=== PATIENT | male | born 1985 | race Caucasian/White ===

== ENCOUNTER 2022-03-03 10:25 | Emergency (ER) | payer OTHER, SELFPAY ==
[2022-03-03] VITALS (7 sets, daily range): BP systolic 135–154; BP diastolic 81–102; PULSE 79–100; RESP 18; TEMP 36.4–37.2; O2SAT 96–99; BMI 39.0
--- NOTE | ~2022-03-03 | XR_ITS ---
EXAMINATION: XR HAND, LEFT CLINICAL INFORMATION: The first and second finger discoloration and pain. COMPARISON: November 29, 2007 TECHNIQUE: PA, lateral, and oblique views of the left hand. FINDINGS: There is no evidence of acute fracture or dislocation of the left hand. Left hand joint spaces are maintained. There is some soft tissue swelling seen about the proximal second phalanx and distal first phalanx. No radiopaque foreign bodies identified. No gas within the soft tissues is seen. XR/XR hand LT 2V IMPRESSION: No significant abnormality of the left hand identified.
--- NOTE | 2022-03-03 12:10 | ED_ITS ---
HPI - General Adult General Chief complaint: General Medical <PATEL Slaughter - Last Filed: 03/03/22 12:16> Stated complaint: WEAKNESS <PATEL Slaughter - Last Filed: 03/03/22 12:16> Time Seen by Provider: 03/03/22 15:56 <PATEL Slaughter - Last Filed: 03/03/22 12:16> Source: patient <Vicente Landaverde MD - Last Filed: 03/03/22 16:07> Mode of arrival: ambulatory <Vicente Landaverde MD - Last Filed: 03/03/22 16:07> Limitations: no limitations <Vicente Landaverde MD - Last Filed: 03/03/22 16:07> History of Present Illness HPI narrative: patient felt weak this morning, he felt lightheaded and weak. He is concerned about his iron. [facility]. patient used to be an alcoholic. <Vicente Landaverde MD - Last Filed: 03/03/22 16:07> Onset (ago): month(s) <Vicente Landaverde MD - Last Filed: 03/03/22 16:07> Severity: mild <Vicente Landaverde MD - Last Filed: 03/03/22 16:07> Pain Consistency: now resolved <Vicente Landaverde MD - Last Filed: 03/03/22 16:07> Relieving factors: none <Vicente Landaverde MD - Last Filed: 03/03/22 16:07> Exacerbating factors: none <Vicente Landaverde MD - Last Filed: 03/03/22 16:07> Related Data Allergies/adverse reactions: Allergies Allergy/AdvReac Type Severity Reaction Status Date / Time No Known Allergies Allergy Mild N/A Unverified 12/22/19 17:26 <PATEL Slaughter - Last Filed: 03/03/22 12:16> Review of Systems Review of Systems: Yes all other systems are reviewed and are negative <Vicente Landaverde MD - Last Filed: 03/03/22 16:07> PMFSH Social History Social History: Social History Advance Directives: No Advance Directives Information Provided: Yes <PATEL Slaughter - Last Filed: 03/03/22 12:16> Physical Exam ED Vital Signs: Vital Signs - 24 hr 03/03/22 12:10 Temperature 97.6 F Pulse Rate 87 Respiratory Rate 18 Blood Pressure 154/81 H Pulse Oximetry 97 Oxygen Delivery Method Room Air BMI result Body Mass Index 39.0 <PATEL Slaughter - Last Filed: 03/03/22 12:16> Vital Signs - 24 hr 03/03/22 12:10 Temperature 97.6 F Pulse Rate 87 Respiratory Rate 18 Blood Pressure 154/81 H Pulse Oximetry 97 Oxygen Delivery Method Room Air BMI result Body Mass Index 39.0 <Vicente Landaverde MD - Last Filed: 03/03/22 16:07> Const General: healthy appearing <Vicente Landaverde MD - Last Filed: 03/03/22 16:07> Nutritional Appearance: average body habitus <Vicetne Landaverde MD - Last Filed: 03/03/22 16:07> Orientation/consciousness: oriented to person and patient oriented x3 <Vicente Landaverde MD - Last Filed: 03/03/22 16:07> Limitations: no limitations <Vicente Landaverde MD - Last Filed: 03/03/22 16:07> HENMT Head: Yes normal to inspection <Vicente Landaverde MD - Last Filed: 03/03/22 16:07> Ears: external ears normal <Vicente Landaverde MD - Last Filed: 03/03/22 16:07> General nose exam: Normal external nose present <Vicente Landaverde MD - Last Filed: 03/03/22 16:07> Mouth: Normal oral and palatal mucosa present and oropharynx normal <Vicente Landaverde MD - Last Filed: 03/03/22 16:07> Throat: Yes posterior oropharynx normal <Vicente Landaverde MD - Last Filed: 03/03/22 16:07> Eyes General: appearance normal, both eyes and all related structures <Vicente Landaverde MD - Last Filed: 03/03/22 16:07> Neck Neck: Yes normal visual inspection <Vicente Landaverde MD - Last Filed: 03/03/22 16:07> Chest Chest palpation & inspection: normal inspection of the chest <Vicente Landaverde MD - Last Filed: 03/03/22 16:07> Resp Auscultation: clear to auscultation bilaterally <Vicente Landaverde MD - Last Filed: 03/03/22 16:07> Cardio Jugular venous distension: no JVD <Vicente Landaverde MD - Last Filed: 03/03/22 16:07> Rate: regular rate <Vicente Landaverde MD - Last Filed: 03/03/22 16:07> Rhythm: regular rhythm <Vicente Landaverde MD - Last Filed: 03/03/22 16:07> Heart sounds: S1 normal heart sound present and S2 normal heart sound present <Vicente Landaverde MD - Last Filed: 03/03/22 16:07> GI Inspection: Yes normal to inspection <Vicente Landaverde MD - Last Filed: 03/03/22 16:07> Palpation (GI): Soft to palpation, nontender and No hepatosplenomegaly present <Vicente Landaverde MD - Last Filed: 03/03/22 16:07> Auscultation: normal bowel sounds <Vicente Landaverde MD - Last Filed: 03/03/22 16:07> General: Yes no CVA tenderness <Vicente Landaverde MD - Last Filed: 03/03/22 16:07> Back/Spine/Pelvis Back: no CVA tenderness <Vicente Landaverde MD - Last Filed: 03/03/22 16:07> Skin General skin exam: no rashes or lesions noted <Vicente Landaverde MD - Last Filed: 03/03/22 16:07> Neuro General: oriented to person and patient oriented x3 <Vicente Landaverde MD - Last Filed: 03/03/22 16:07> Cranial nerves: Yes CN's II-XII intact bilaterally <Vicente Landaverde MD - Last Filed: 03/03/22 16:07> Motor exam (neuro): 5/5 motor strength present throughout <Vicente Landaverde MD - Last Filed: 03/03/22 16:07> Extrem General: Yes normal to inspection <Vicente Landaverde MD - Last Filed: 03/03/22 16:07> Psych Appearance: grossly normal <Vicente Landaverde MD - Last Filed: 03/03/22 16:07> Course Course Course Narrative: 36 yo with history of anemia, anxiety, former ETOH use who presents to the ER for evaluation of generalized weakness and dizziness that worsened today while he was out shopping. [place] like he was going to pass out. Also reports intermittent left sided chest pains, chills and not feeling well. Appetite has been poor due to anxiety. Getting worked up at the [facility] for similar complaints that have been ongoing. Will get EKG, labs for further workup. COVID and Flu ordered as well. <PATEL Slaughter - Last Filed: 03/03/22 12:16> Reevaluation(s) Reevaluation #1: labs including his LFT's are normal, Normal ekg his is suffering from stress and anxiety. will dc home <Vicente Landaverde MD - Last Filed: 03/03/22 16:07> Time: 16:06 <Vicente Landaverde MD - Last Filed: 03/03/22 16:07> Medical Decision Making Lab Data Result diagrams: : 03/03/22 12:36 03/03/22 12:36 <PATEL Slaughter - Last Filed: 03/03/22 12:16> Labs: Lab Results 03/03/22 03/03/22 03/03/22 Range/Units 12:36 12:36 12:36 WBC 8.2 (4.8-10.8) X10*3/uL RBC 5.45 (4.60-5.80) X10*6/uL Hgb 10.6 L (14.0-18.0) g/dl Hct 36.9 L (42.0-52.0) % MCV 67.7 L (80.0-98.0) fL MCH 19.4 L (27.0-33.0) pg MCHC 28.7 L (31.0-36.0) g/dl RDW 19.8 H (11.0-16.0) % Plt Count 462 H (160-400) X10*3/uL MPV 9.2 L (9.4-12.4) fL Immature Gran % (Auto) 0.5 H (0.0-0.4) % Neut % (Auto) 71.0 (45-73) % Lymph % (Auto) 20.5 (20-40) % [place] % (Auto) 7.1 (2-11) % Eos % (Auto) 0.5 (0-4) % Baso % (Auto) 0.4 (0-2) % Lymph # (Auto) 1.7 (1.2-4.9) X10*3/uL [place] # (Auto) 0.6 (0.1-1.2) X10*3/uL Eos # (Auto) 0.0 (0.0-0.4) X10*3/uL Baso # (Auto) 0.0 (0.0-0.2) X10*3/uL Abs Immat Gran (auto) 0.04 H (0.00-0.03) X10*3/uL Absolute Neuts (auto) 5.8 (2.0-8.3) x10*3/uL Absolute Nucleated RBC 0.000 (0.0-0.012) X10*3/uL Nucleated RBC % (auto) 0.0 (0.0-0.2) /100WBC Sodium 139 (135-145) mmol/L Potassium 4.1 (3.3-5.1) mmol/L Chloride 104 (96-108) mmol/L Carbon Dioxide 23 (22-29) mmol/L Anion Gap 16 (12-20) BUN 7 L (9-16) mg/dL Creatinine 1.19 (0.5-1.4) mg/dL Estim Creat Clear Calc 118.7 Estimated GFR > 60 Random Glucose 101 (60-115) mg/dL Calcium 10.1 (8.4-10.2) mg/dL Magnesium 2.3 (1.6-2.6) mg/dL Total Bilirubin 0.8 (0.0-1.0) mg/dL Direct Bilirubin 0.4 (0.0-0.5) mg/dL AST 22 (5-37) U/L ALT 29 (0-40) U/L Alkaline Phosphatase 59 (39-117) U/L Total Protein 7.2 (6.5-8.0) g/dL Albumin 4.8 (3.5-5.0) g/dL COVID-19 (TEREZA) (Negative) COVID-19 Clin Com Influenza Type A (TATIANA) Negative (Negative) Influenza Type B (TATIANA) Negative (Negative) Influenza A & B Note See Note 03/03/22 Range/Units 12:36 WBC (4.8-10.8) X10*3/uL RBC (4.60-5.80) X10*6/uL Hgb (14.0-18.0) g/dl Hct (42.0-52.0) % MCV (80.0-98.0) fL MCH (27.0-33.0) pg MCHC (31.0-36.0) g/dl RDW (11.0-16.0) % Plt Count (160-400) X10*3/uL MPV (9.4-12.4) fL Immature Gran % (Auto) (0.0-0.4) % Neut % (Auto) (45-73) % Lymph % (Auto) (20-40) % [place] % (Auto) (2-11) % Eos % (Auto) (0-4) % Baso % (Auto) (0-2) % Lymph # (Auto) (1.2-4.9) X10*3/uL [place] # (Auto) (0.1-1.2) X10*3/uL Eos # (Auto) (0.0-0.4) X10*3/uL Baso # (Auto) (0.0-0.2) X10*3/uL Abs Immat Gran (auto) (0.00-0.03) X10*3/uL Absolute Neuts (auto) (2.0-8.3) x10*3/uL Absolute Nucleated RBC (0.0-0.012) X10*3/uL Nucleated RBC % (auto) (0.0-0.2) /100WBC Sodium (135-145) mmol/L Potassium (3.3-5.1) mmol/L Chloride (96-108) mmol/L Carbon Dioxide (22-29) mmol/L Anion Gap (12-20) BUN (9-16) mg/dL Creatinine (0.5-1.4) mg/dL Estim Creat Clear Calc Estimated GFR Random Glucose (60-115) mg/dL Calcium (8.4-10.2) mg/dL Magnesium (1.6-2.6) mg/dL Total Bilirubin (0.0-1.0) mg/dL Direct Bilirubin (0.0-0.5) mg/dL AST (5-37) U/L ALT (0-40) U/L Alkaline Phosphatase (39-117) U/L Total Protein (6.5-8.0) g/dL Albumin (3.5-5.0) g/dL COVID-19 (TEREZA) Negative (Negative) COVID-19 Clin Com See Note Influenza Type A (TATIANA) (Negative) Influenza Type B (TATIANA) (Negative) Influenza A & B Note <PATEL Slaughter - Last Filed: 03/03/22 12:16> Lab Results 03/03/22 03/03/22 03/03/22 Range/Units 12:36 12:36 12:36 WBC 8.2 (4.8-10.8) X10*3/uL RBC 5.45 (4.60-5.80) X10*6/uL Hgb 10.6 L (14.0-18.0) g/dl Hct 36.9 L (42.0-52.0) % MCV 67.7 L (80.0-98.0) fL MCH 19.4 L (27.0-33.0) pg MCHC 28.7 L (31.0-36.0) g/dl RDW 19.8 H (11.0-16.0) % Plt Count 462 H (160-400) X10*3/uL MPV 9.2 L (9.4-12.4) fL Immature Gran % (Auto) 0.5 H (0.0-0.4) % Neut % (Auto) 71.0 (45-73) % Lymph % (Auto) 20.5 (20-40) % [place] % (Auto) 7.1 (2-11) % Eos % (Auto) 0.5 (0-4) % Baso % (Auto) 0.4 (0-2) % Lymph # (Auto) 1.7 (1.2-4.9) X10*3/uL [place] # (Auto) 0.6 (0.1-1.2) X10*3/uL Eos # (Auto) 0.0 (0.0-0.4) X10*3/uL Baso # (Auto) 0.0 (0.0-0.2) X10*3/uL Abs Immat Gran (auto) 0.04 H (0.00-0.03) X10*3/uL Absolute Neuts (auto) 5.8 (2.0-8.3) x10*3/uL Absolute Nucleated RBC 0.000 (0.0-0.012) X10*3/uL Nucleated RBC % (auto) 0.0 (0.0-0.2) /100WBC Sodium 139 (135-145) mmol/L Potassium 4.1 (3.3-5.1) mmol/L Chloride 104 (96-108) mmol/L Carbon Dioxide 23 (22-29) mmol/L Anion Gap 16 (12-20) BUN 7 L (9-16) mg/dL Creatinine 1.19 (0.5-1.4) mg/dL Estim Creat Clear Calc 118.7 Estimated GFR > 60 Random Glucose 101 (60-115) mg/dL Calcium 10.1 (8.4-10.2) mg/dL Magnesium 2.3 (1.6-2.6) mg/dL Total Bilirubin 0.8 (0.0-1.0) mg/dL Direct Bilirubin 0.4 (0.0-0.5) mg/dL AST 22 (5-37) U/L ALT 29 (0-40) U/L Alkaline Phosphatase 59 (39-117) U/L Total Protein 7.2 (6.5-8.0) g/dL Albumin 4.8 (3.5-5.0) g/dL COVID-19 (TEREZA) (Negative) COVID-19 Clin Com Influenza Type A (TATIANA) Negative (Negative) Influenza Type B (TATIANA) Negative (Negative) Influenza A & B Note See Note 03/03/22 Range/Units 12:36 WBC (4.8-10.8) X10*3/uL RBC (4.60-5.80) X10*6/uL Hgb (14.0-18.0) g/dl Hct (42.0-52.0) % MCV (80.0-98.0) fL MCH (27.0-33.0) pg MCHC (31.0-36.0) g/dl RDW (11.0-16.0) % Plt Count (160-400) X10*3/uL MPV (9.4-12.4) fL Immature Gran % (Auto) (0.0-0.4) % Neut % (Auto) (45-73) % Lymph % (Auto) (20-40) % [place] % (Auto) (2-11) % Eos % (Auto) (0-4) % Baso % (Auto) (0-2) % Lymph # (Auto) (1.2-4.9) X10*3/uL [place] # (Auto) (0.1-1.2) X10*3/uL Eos # (Auto) (0.0-0.4) X10*3/uL Baso # (Auto) (0.0-0.2) X10*3/uL Abs Immat Gran (auto) (0.00-0.03) X10*3/uL Absolute Neuts (auto) (2.0-8.3) x10*3/uL Absolute Nucleated RBC (0.0-0.012) X10*3/uL Nucleated RBC % (auto) (0.0-0.2) /100WBC Sodium (135-145) mmol/L Potassium (3.3-5.1) mmol/L Chloride (96-108) mmol/L Carbon Dioxide (22-29) mmol/L Anion Gap (12-20) BUN (9-16) mg/dL Creatinine (0.5-1.4) mg/dL Estim Creat Clear Calc Estimated GFR Random Glucose (60-115) mg/dL Calcium (8.4-10.2) mg/dL Magnesium (1.6-2.6) mg/dL Total Bilirubin (0.0-1.0) mg/dL Direct Bilirubin (0.0-0.5) mg/dL AST (5-37) U/L ALT (0-40) U/L Alkaline Phosphatase (39-117) U/L Total Protein (6.5-8.0) g/dL Albumin (3.5-5.0) g/dL COVID-19 (TEREZA) Negative (Negative) COVID-19 Clin Com See Note Influenza Type A (TATIANA) (Negative) Influenza Type B (TATIANA) (Negative) Influenza A & B Note <Vicente Landaverde MD - Last Filed: 03/03/22 16:07> ECG Data Attestation: I personally reviewed and interpreted this ECG as follows: <Vicente Landaverde MD - Last Filed: 03/03/22 16:07> Interpretation: sinus 80, no st or twave changes <Vicente Landaverde MD - Last Filed: 03/03/22 16:07> Discharge Plan Discharge Clinical Impression: Lightheadedness, Anxiety <PATEL Slaughter - Last Filed: 03/03/22 12:16> Patient Disposition: Home, Self-Care <PATEL Slaughter - Last Filed: 03/03/22 12:16> Instructions: Anxiety (ED) <PATEL Slaughter - Last Filed: 03/03/22 12:16> Referrals: Luis Maxwell PA [Primary Care Provider] - 5 days <PATEL Slaughter - Last Filed: 03/03/22 12:16>
--- NOTE | 2022-03-03 12:11 | ECG_ITS ---
Test Reason : weakness Blood Pressure : / mmHG Vent. Rate : 078 BPM Atrial Rate : 078 BPM P-R Int : 138 ms QRS Dur : 088 ms QT Int : 368 ms P-R-T Axes : 021 023 018 degrees QTc Int : 419 ms Normal sinus rhythm Possible Early repolarization Normal ECG When compared with ECG of 26-DEC-2009 11:54, T wave amplitude has decreased in Inferior leads Referred By: Lynette Cesar Electronically Signed By:SHAUN ARELLANO MD
[2022-03-03 12:41] LABS: MANUAL DIFF FLAG NO
[2022-03-03 12:44] LABS: Basophils Percent Auto 0.4 % (0-2); Eosinophils Percent Auto 0.5 % (0-4); Hematocrit 36.9 % (42.0-52.0); Hemoglobin 10.6 g/dl (14.0-18.0); Imm Gran Abs Auto 0.04 X10*3/uL (0.00-0.03); Imm Gran Pct Auto 0.5 % (0.0-0.4); Lymphocytes Absolute Auto 1.7 X10*3/uL (1.2-4.9); Lymphocytes Percent Auto 20.5 % (20-40); Mean Corpuscular HGB Conc 28.7 g/dl (31.0-36.0); Mean Corpuscular Hemoglobin 19.4 pg (27.0-33.0); Mean Corpuscular Volume 67.7 fL (80.0-98.0); Mean Platelet Volume 9.2 fL (9.4-12.4); Monocytes Absolute Auto 0.6 X10*3/uL (0.1-1.2); Monocytes Percent Auto 7.1 % (2-11); Neutrophils Absolute Auto 5.8 x10*3/uL (2.0-8.3); Platelet Count 462 X10*3/uL (160-400); Red Blood Count 5.45 X10*6/uL (4.60-5.80); Red Cell Distribution Width 19.8 % (11.0-16.0); White Blood Count 8.2 X10*3/uL (4.8-10.8)
[2022-03-03 12:56] LABS: COVID-19 Test Negative (Negative); IDNOW Serial# BCCEAD1C
[2022-03-03 12:57] LABS: IDNOW Serial# 9DB6401D; Influenza A Negative (Negative); Influenza B2 Negative (Negative)
[2022-03-03 12:58] LABS: Alanine Aminotransferase 29 U/L (0-40); Albumin Level 4.8 g/dL (3.5-5.0); Alkaline Phosphatase 59 U/L (39-117); Anion Gap 16 (12-20); Aspartate Amino Transferase 22 U/L (5-37); Bilirubin Direct 0.4 mg/dL (0.0-0.5); Bilirubin Total 0.8 mg/dL (0.0-1.0); Blood Urea Nitrogen 7 mg/dL (9-16); Calcium 10.1 mg/dL (8.4-10.2); Carbon Dioxide 23 mmol/L (22-29); Chloride 104 mmol/L (96-108); Creatinine Clr Calc Pharmacy 118.7; Estimated Glomerular Filt Rate > 60; Glucose Random 101 mg/dL (60-115); Magnesium 2.3 mg/dL (1.6-2.6); Potassium 4.1 mmol/L (3.3-5.1); Sodium 139 mmol/L (135-145); Total Protein 7.2 g/dL (6.5-8.0)
[2022-03-03 21:47] LABS: Hematocrit 35.3 % (42.0-52.0); Hemoglobin 10.4 g/dl (14.0-18.0)
[2022-03-03] MEDS: Omeprazole 40 MG CAPSULE.DR PO (21:53)
[2022-03-04] VITALS (9 sets, daily range): BP systolic 126–150; BP diastolic 88–109; PULSE 80–97; RESP 14–20; TEMP 36.4–37.2; O2SAT 96–100
--- NOTE | 2022-03-04 03:35 | PC.NURSE ---
this rn discussed with dr vines if a med rec should be placed for patient. MD recommends waiting until after crisis evaluation has been completed.
--- NOTE | 2022-03-04 04:33 | PC.NURSE ---
this rn spoke with pt pt requesting ice water at this time. pt also states he uses cpap at home. pt states he did not realize it was the middle of the night. this rn reassured pt respiratory therapy would be contacted to set up cpap.
--- NOTE | 2022-03-04 04:35 | PC.NURSE ---
this rn contacted respiratory regarding set up of cpap. cpap order placed by RN. RT states, will bring cpap for set up
--- NOTE | 2022-03-04 05:06 | PC.NURSE ---
cpap in place at this time
--- NOTE | 2022-03-04 05:17 | PC.NURSE ---
pt awake upon rn entry to room. cpap in place. pt requested additional water for bedside. as needed. this rn provided water to pt as requested
--- NOTE | 2022-03-04 06:15 | PC.NURSE ---
pt states he has been having a tingling sensation in l pointer finger everytime BP is checked on that side. 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
--- NOTE | 2022-03-04 09:13 | PC.NURSE ---
Pt reports generalized weakness since yesterday, near syncope. Continues to feel weak. Also reports left hand pain, discoloration to index and thumb warm with good radial pulse. Kayla aware. Pt reports increasing anxiety, no triggering events relayed to this RN. Denies SI/HI
--- NOTE | 2022-03-04 11:54 | PHA.MEDREC ---
Pharmacy Consult ? Medication Reconciliation Pharmacy has completed the medication reconciliation. Spoke to patient and used rx bottle to create list. patient said dr increased diltiazem from 120 to 240 but hasnt started taking dose yet
--- NOTE | 2022-03-04 13:35 | PC.NURSE ---
CARE team at bedside
--- NOTE | 2022-03-04 14:13 | MHC.CARE ---
Pt is a medical admit who told the ED DrWinston that he was having anxiety and asked for the CARE Team to check in with him. Pt is assessed in his room in the ED.? Pt was dressed in hospital gown and is lying in his bed for this assessment. His father is present and clearly supportive of his son. Pt was alert and oriented x4, and engaged easily with the CARE Team.? Pt denies SI/HI, and demonstrated a broad range of affect.? His speech was clear and he maintained eye contact.? Pt is able to answer questions posed to him and to verbalize his feelings.? Pt states that he was feeling very anxious due to recent medical issues that brought him to the ED, as well as his family?s medical history.? Pt expressed his concern over his family?s medical history, specifically those family members who had cancer.? He feels that his PTSD from service was flaring up, or thought maybe it was due to a med change which happened recently.? Pt was a heavy drinker until 6 months ago, when he quit.? He has a psychiatrist, therapist and PCP through the [facility].? He begins seeing the therapist in two days. He has attended AA, uses mindfulness and reads his mindfulness books to maintain his sobriety.? 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 While pt did expressed some interest in utilizing a [employer] Tender, he stated he did not feel it was something that he would utilize at this time.? Pt was given the CARE Team?s phone number and was advised that should he have a change of mind he was welcome to call and CARE would assist him in the process. Pt appears to have community supports in place through the [facility] and he has a supportive father.? Pt?s anxiety appears to be related to his medical concerns and not knowing what the cause of his medical issue is.
[2022-03-04 14:44] LABS: Appearance Urine Clear; Color Urine Dark Yellow; Glucose Urine UA Negative (Negative); Leukocyte Esterase Urine Trace (Negative); Nitrite Urine Negative (Negative); Specific Gravity - Urine >= 1.030 (1.005-1.025); UMIC TRIGGER UACC YES; Urine Blood Negative (Negative); Urine Ketones 40 mg/dL (Negative); Urine Protein 30 (1+) mg/dL (Neg-Trace)
[2022-03-04 14:49] LABS: Bacteria Urine None Seen (None Seen); Hyaline Casts Urine 0-2 /LPF (0-2); RBC Urine 0-2 /HPF (0-2); WBC Urine 0-5 /HPF (0-5)
--- NOTE | 2022-03-04 17:23 | PC.NURSE ---
Attempted to reach CARE team regarding dispo/plan, no response at this time. Pt remains calm/cooperative. Med rec ordered placed
[2022-03-05] VITALS (12 sets, daily range): BP systolic 115–153; BP diastolic 78–111; PULSE 74–111; RESP 12–20; TEMP 36.8–37; O2SAT 95–98
[2022-03-05] MEDS: Acetaminophen 325 MG TABLET 650 MG PO (06:10)
[2022-03-05] MEDS: Omeprazole 40 MG CAPSULE.DR PO (06:11)
--- NOTE | 2022-03-05 06:14 | PC.NURSE ---
PT's V/s are stable pt meds were administered. Pt seems anxious.
[2022-03-05] MEDS: dilTIAZem HCL CD 120 MG CAP.ER.DEG PO (10:36)
[2022-03-05] MEDS: Cholecalciferol (Vitamin D3) 25 MCG TABLET 125 MCG PO (10:37)
[2022-03-05] MEDS: Ferrous Sulfate 324 MG TABLET.DR PO (10:37)
[2022-03-05] MEDS: Multivitamin TABLET 1 TAB PO (10:37)
[2022-03-05] MEDS: buPROPion HCl XL 150 MG TAB.ER.24H PO (10:37)
[2022-03-05] MEDS: Ibuprofen 400 MG TABLET PO (10:37)
[2022-03-05] MEDS: Thiamine HCL 100 MG TABLET PO (10:37)
[2022-03-05] MEDS: Folic Acid 1 MG TABLET PO (10:39)
[2022-03-05 10:57] LABS: Troponin-I High Sensitivity 4.1 ng/L (<3.5-35.0)
[2022-03-05] MEDS: 0.9 % Sodium Chloride 1,000 ML 999 ML IV (11:42)
== END 2022-03-05 14:15 | disposition home or self-care (01) ==
PROVIDERS: Internal Medicine; Physician Assistant; Emergency Provider Emergency Medicine; PCP Physician Assistant
DX: R42 Dizziness and giddiness (principal); F41.9 Anxiety disorder, unspecified; Z20.822 Contact with and (suspected) exposure to COVID-19; I10 Essential (primary) hypertension; F12.90 Cannabis use, unspecified, uncomplicated; Z87.891 Personal history of nicotine dependence
CPT/HCPCS: 36415; 73120; 80048; 80076; 81001; 83735; 84484; 85014; 85018; 85025; 87502; 87635; 93005; 94660; 99285

== ENCOUNTER 2022-03-05 15:26 | Inpatient (IN) | payer OTHER, SELFPAY ==
[2022-03-05 15:46] VITALS: PULSE 89; RESP 16; TEMP 37.1; O2SAT 98; BMI 39.0
--- NOTE | 2022-03-05 17:03 | ED.PSYCH ---
HPI - Psych General Chief Complaint: Psychiatric Symptoms Stated Complaint: Crisis Time Seen by Provider: 03/05/22 16:16 Source: patient Mode of arrival: ambulatory Limitations: no limitations History of Present Illness HPI Narrative: 36-year-old male presents for crisis evaluation. That he states that he is paranoid, has significant anxiety, and feels that he will not be able function on own. He was discharged from this facility this morning. He stated that he could not articulate his feelings at the time of his discharge. MD complaint: anxiety and other (Paranoia) Onset (ago): week(s) Duration: constant History of same: Yes Relieving factors: none Associated psychiatric symptoms: racing thoughts and other (Paranoia) Associated symptoms: denies other symptoms If self harm: admits thoughts of self harm Related Data Home Medications Medication Instructions Recorded Confirmed bupropion HCl 150 mg 24 hr tablet, 150 mg PO QAM 03/04/22 03/04/22 extended release cholecalciferol (vitamin D3) 125 125 mcg PO DAILY 03/04/22 03/04/22 mcg (5,000 unit) tablet (Vitamin D3) diltiazem HCl 120 mg 120 mg PO DAILY 03/04/22 03/04/22 capsule,extended release 24 hr ferrous sulfate 325 mg (65 mg 325 mg PO DAILY 03/04/22 03/04/22 iron) tablet (iron) folic acid 1 mg tablet 1 mg PO DAILY 03/04/22 03/04/22 multivitamin 1 tab PO DAILY 03/04/22 03/04/22 omega 1-klc-wrt-fish oil 1,000 mg 1 cap PO DAILY 03/04/22 03/04/22 (120 mg-180 mg) capsule (Fish Oil) thiamine HCl (vitamin B1) 100 mg 100 mg PO DAILY 03/04/22 03/04/22 tablet Allergies Allergy/AdvReac Type Severity Reaction Status Date / Time No Known Allergies Allergy Mild N/A Unverified 12/22/19 17:26 Review of Systems Review of Systems: Constitutional: No Fever, No Chills ENT/Mouth: No Ear Pain, No Nasal Congestion, No sore throat Eyes: No Eye Pain, No Swelling, No Redness Cardiovascular: No Chest Pain, No SOB Respiratory: No Cough, No Sputum, No Dyspnea Gastrointestinal: No Nausea, No Vomiting, No Diarrhea, No Hematochezia, No Melena Genitourinary: No Dysuria, No Urinary Frequency, No Hematuria Musculoskeletal: No Myalgias Skin: No Skin Lesions, No rash Neuro: No Weakness, No Numbness, No Paresthesias, No Dizziness, No Headache Psych: positive Anxiety, positive Depression, positive SI Heme/Lymph: No Lymphadenopathy Endocrine: No Polyuria, No Polydipsia Yes all other systems are reviewed and are negative [facility] Past Medical History Attestation statement: The following information was validated with the patient. Source: old records reviewed Social History Social History Advance Directives: No Advance Directives Information Provided: No Physical Exam Vital Signs: Vital Signs: Last Vital Signs Temp 98.0 F 03/05/22 17:23 Pulse 72 03/05/22 17:23 Resp 16 03/05/22 17:23 BP 142/84 H 03/05/22 17:23 Pulse Ox 98 03/05/22 17:23 O2 Del Method 03/05/22 17:23 BMI result Body Mass Index 39.0 Appearance: Alert. Oriented X3. Moderate emotional distress. Eyes: Pupils equal, round and reactive to light. ENT: Pharynx normal. Neck: Normal inspection. Neck supple. CVS: Normal heart rate and rhythm. Pulses normal. Respiratory: No respiratory distress. Breath sounds normal. Abdomen: Soft and nontender. Skin: Skin warm and dry. Normal skin color. Normal skin turgor. Extremities: Gait well balanced well coordinated. Neuro: No motor deficit. No sensory deficit. Cranial nerves 2-12 intact. Course Course Course Narrative: 36-year-old male presents for psychiatric evaluation for paranoia and anxiety. Was discharged from this facility less than 5 hours ago. States that he is so paranoid and has so much anxiety that he does not feel that he would be successful in the community. Patient states that he is suicidal, but does not have a plan. Patient is alert oriented x4, answering questions politely and appropriately, speech appears pressured, making minimal eye contact. Patient offered medication for anxiety which he accepted, crisis consult pending. Labs were drawn less than 24 hours ago. 19:10 crisis consult complete. Plan of care is [place] leads bed search. Physician observation at this time. Medications Administered Discontinued Medications Generic Name Dose Route Start Last Admin Trade Name Freq PRN Reason Stop Dose Admin Lorazepam 1 mg 03/05/22 17:03 03/05/22 18:03 Lorazepam 1 Mg Tablet PO 03/05/22 17:04 1 mg ONCE ONE Administration MDM - Psych Differential Diagnosis Differential diagnosis: Likely acute psychosis, suicidal ideation, depression, acute anxiety and mood disorder Medical Records Attestation: I reviewed the patient's medical records. Discharge Plan Discharge Clinical Impression: Anxiety, Paranoia Patient Disposition: Still a Patient Instructions: Anxiety (ED), Psychotic Disorder (ED) Additional Instructions: Follow-up with outpatient psychiatry Thank you for choosing this emergency department for evaluation. Please follow-up with primary care physician as needed. Return to the emergency department for any new, concerning, or worsening symptoms. Prescriptions: No Action diltiazem HCl 120 mg Capsule,Extended Release 24hr 120 mg PO DAILY folic acid 1 mg Tablet 1 mg PO DAILY bupropion HCl 150 mg Tablet Extended Release 24 Hr 150 mg PO QAM omega 6-igq-ets-fish oil [Fish Oil] 1,000 mg (120 mg-180 mg) Capsule 1 cap PO DAILY cholecalciferol (vitamin D3) [Vitamin D3] 125 mcg (5,000 unit) Tablet 125 mcg PO DAILY multivitamin [Multivites] Tablet 1 tab PO DAILY thiamine HCl (vitamin B1) 100 mg Tablet 100 mg PO DAILY ferrous sulfate [iron] 325 mg (65 mg iron) Tablet 325 mg PO DAILY Interventions: [place]-Suicide Risk Severity Scale Last Done: 03/05/22 16:16
[2022-03-05 17:23] VITALS: BP 142/84; PULSE 72; RESP 16; TEMP 36.7; O2SAT 98
[2022-03-05] MEDS: LORazepam 1 MG TABLET PO (18:03)
--- NOTE | 2022-03-05 18:16 | PC.NURSE ---
smart sheet send over to [facility]
[2022-03-05 20:32] LABS: Influenza A PCR NEGATIVE (Negative); Influenza B PCR NEGATIVE (Negative); Resp Syncy Virus RNA Qual PCR NEGATIVE (Negative); SARS COV2 PCR INHOUSE NEGATIVE (Negative)
--- NOTE | 2022-03-05 21:19 | MHC.CARE ---
Pt was evaluated by the CARE Team. Pt is a [facility] IP bedsearch- Voluntary. T/w called the [facility] and they requested packet to be sent over.
[2022-03-06 00:52] VITALS: BP 148/78; PULSE 79; RESP 16; TEMP 36.7; O2SAT 98
[2022-03-06 02:50] LABS: Amphetamine Screen Urine Not Detected (Not Detect); Barbiturates, Urine Not Detected (Not Detect); Benzodiazepines Screen Urine Not Detected (Not Detect); Cannabinoid Screen Urine POSITIVE (Not Detect); Cocaine Screen Urine Not Detected (Not Detect); Fentanyl, urine Not Detected (Not Detect); Opiate Screen Urine Not Detected (Not Detect); Phencyclidine Screen Urine Not Detected (Not Detect)
--- NOTE | 2022-03-06 04:52 | PC.NURSE ---
Patient slept through the night, no distress observed/reported, behavior appropriate and non concerning at this time, no paranoia observed or exhibited, patient was assessed by care team disposition [facility], [facility] called and made us aware of their concern regarding patient GI bleed, provider made aware, guaiac test done/negative, CBC repeat order in the morning to check H&H, patient reported no tarry stool, patient described his stool brown, per provider's opinion, patient reporting dark stool could be related to the patient's paranoia, patient ambulates independently, expressing needs well, med rec completed/pending provider's approval, VSS, will continue to monitor.
[2022-03-06 05:43] LABS: MANUAL DIFF FLAG NO
[2022-03-06 05:44] LABS: Basophils Percent Auto 0.4 % (0-2); Eosinophils Absolute Auto 0.1 X10*3/uL (0.0-0.4); Eosinophils Percent Auto 1.3 % (0-4); Hematocrit 39.6 % (42.0-52.0); Hemoglobin 11.6 g/dl (14.0-18.0); Imm Gran Abs Auto 0.02 X10*3/uL (0.00-0.03); Imm Gran Pct Auto 0.3 % (0.0-0.4); Lymphocytes Absolute Auto 1.6 X10*3/uL (1.2-4.9); Lymphocytes Percent Auto 22.1 % (20-40); Mean Corpuscular HGB Conc 29.3 g/dl (31.0-36.0); Mean Corpuscular Hemoglobin 19.7 pg (27.0-33.0); Mean Corpuscular Volume 67.3 fL (80.0-98.0); Mean Platelet Volume 8.8 fL (9.4-12.4); Monocytes Absolute Auto 0.6 X10*3/uL (0.1-1.2); Monocytes Percent Auto 7.8 % (2-11); Neutrophils Percent Auto 68.1 % (45-73); Platelet Count 404 X10*3/uL (160-400); Red Blood Count 5.88 X10*6/uL (4.60-5.80); Red Cell Distribution Width 19.9 % (11.0-16.0); White Blood Count 7.4 X10*3/uL (4.8-10.8)
[2022-03-06 07:43] VITALS: RESP 18
--- NOTE | 2022-03-06 08:31 | MHC.CARE ---
CARE Team left message for [facility] and updated medical was faxed.
[2022-03-06] MEDS: Multivitamin TABLET 1 TAB PO (08:57)
[2022-03-06] MEDS: Ferrous Sulfate 324 MG TABLET.DR PO (08:57)
[2022-03-06] MEDS: Thiamine HCL 100 MG TABLET PO (08:57)
[2022-03-06] MEDS: dilTIAZem HCL CD 120 MG CAP.ER.DEG PO (08:57)
[2022-03-06] MEDS: Cholecalciferol (Vitamin D3) 25 MCG TABLET 125 MCG PO (08:57)
[2022-03-06] MEDS: buPROPion HCl XL 150 MG TAB.ER.24H PO (08:58)
[2022-03-06] MEDS: Folic Acid 1 MG TABLET PO (08:58)
[2022-03-06 10:31] VITALS: BP 143/92; PULSE 83; RESP 16; TEMP 36.7; O2SAT 98
--- NOTE | 2022-03-06 12:14 | MHC.CARE ---
Pt declined at [facility] due to medical
[2022-03-06 12:29] LABS: Alanine Aminotransferase 21 U/L (0-40); Albumin Level 4.6 g/dL (3.5-5.0); Alkaline Phosphatase 56 U/L (39-117); Anion Gap 12 (12-20); Aspartate Amino Transferase 16 U/L (5-37); Bilirubin Total 0.8 mg/dL (0.0-1.0); Blood Urea Nitrogen 7 mg/dL (9-16); Calcium 9.8 mg/dL (8.4-10.2); Carbon Dioxide 23 mmol/L (22-29); Chloride 106 mmol/L (96-108); Creatinine Clr Calc Pharmacy 133.3; Estimated Glomerular Filt Rate > 60; Ethanol < 10 mg/dL; Glucose Random 86 mg/dL (60-115); Potassium 3.9 mmol/L (3.3-5.1); Sodium 137 mmol/L (135-145); Total Protein 6.9 g/dL (6.5-8.0)
--- NOTE | 2022-03-06 13:24 | MHC.CARE ---
Pt declined at [facility] due to medical concerns
[2022-03-06] MEDS: LORazepam 1 MG TABLET 2 MG PO (14:28)
[2022-03-06 15:35] VITALS: BP 145/99; PULSE 113; RESP 18; TEMP 36.6; O2SAT 98
[2022-03-06 17:38] VITALS: BMI 36.8
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
[2022-03-06 20:15] VITALS: BP 129/86; PULSE 75; RESP 16; TEMP 36.3; O2SAT 99
[2022-03-06] MEDS: Acetaminophen 325 MG TABLET 650 MG PO (21:28)
[2022-03-06] MEDS: traZODone HCL 50 MG TABLET PO (23:43)
[2022-03-06] MEDS: hydrOXYzine HCL 25 MG TABLET PO (23:44)
[2022-03-07] MEDS: Acetaminophen 325 MG TABLET 650 MG PO (02:43)
[2022-03-07] MEDS: Ferrous Sulfate 324 MG TABLET.DR PO (08:46)
[2022-03-07] MEDS: Multivitamin TABLET 1 TAB PO (08:46)
[2022-03-07] MEDS: Folic Acid 1 MG TABLET PO (08:46)
[2022-03-07] MEDS: Cholecalciferol (Vitamin D3) 25 MCG TABLET 125 MCG PO (08:46)
[2022-03-07] MEDS: Thiamine HCL 100 MG TABLET PO (08:46)
[2022-03-07 08:49] VITALS: BP 168/98; PULSE 68; RESP 17; TEMP 36.6; O2SAT 98
[2022-03-07] MEDS: dilTIAZem HCL CD 240 MG CAP.ER.DEG PO (12:21)
--- NOTE | 2022-03-07 17:13 | P.PNPSI_ITS ---
Subjective Subjective Date of Service: 03/07/22 Reason For Visit: SI Subjective Notes: Alcocer Warning and Conditional Voluntary Interim History: I spoke with pt this evening. Says he attributes his paranoia and presentation in the ED to having a panic attack and also says he thinks wellbutrin has been making him paranoid. Says lately his PTSD and anxiety have been getting unbearable. He is worried about his health due to being diagnosed with low iron, has to have a GI workup. Pt is 6-7 months sober from alcohol. Discussed hx of participating in a co-occurring illness program at the [facility], however he relapsed after leaving the program, drank a handle a day. He was able to attain sobriety again and attributes this in part to medical cannabis, takes 1-2 edibles at night. Also says he uses music and his dog help. Currently he denies urges to use alchol. 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 Pt says he used to be on prazosin, it was very good for me, took 4mg AM and 8 mg HS. Says his anxiety is his number one frustration. Had past benefit on SSRIs, i.e. zoloft, but c/o sexual SEs, says it was a libido killer. Medication Compliance: Yes Side effects from medications: No Attending Groups: Yes Review of Systems Acute medical concerns: No Medical Review of Systems: unchanged Mental Status Exam Mental Status Exam Narrative: A&O. Overweight, long mackenzie. Good eye contact, attentive. No Tics or Tremors. No abnormal involuntary movements. Calm, cooperative, engaged. Non-pressured speech, spontaneous with regular rate and rhythm, normal volume and prosody. No prolonged speech latency or dysarthria. Mood is ?anxious,? affect is appropriate. Denies SI/SIB/HI upon inquiry. Denies A/VH or delusional thought content. Thoughts are coherent, organized. No known cognitive or memory impairment. Insight/ Judgment fair and adequate. Diagnostics Vital Signs (24Hr): Vital Signs - 24 hr 03/06/22 20:15 03/07/22 08:49 Temperature 97.4 F 97.8 F Pulse Rate 75 68 Respiratory Rate 16 17 Blood Pressure 129/86 168/98 H Pulse Oximetry 99 98 Oxygen Delivery Method Room Air Room Air BMI result Body Mass Index 36.8 Labs Results: 03/06/22 05:39 03/06/22 10:44 Labs: Laboratory Results - last 48 hr 03/05/22 03/06/22 03/06/22 19:43 02:30 05:39 WBC 7.4 RBC 5.88 H Hgb 11.6 L Hct 39.6 L MCV 67.3 L MCH 19.7 L MCHC 29.3 L RDW 19.9 H Plt Count 404 H MPV 8.8 L Immature Gran % (Auto) 0.3 Neut % (Auto) 68.1 Lymph % (Auto) 22.1 [place] % (Auto) 7.8 Eos % (Auto) 1.3 Baso % (Auto) 0.4 Lymph # (Auto) 1.6 [place] # (Auto) 0.6 Eos # (Auto) 0.1 Baso # (Auto) 0.0 Abs Immat Gran (auto) 0.02 Absolute Neuts (auto) 5.0 Absolute Nucleated RBC 0.000 Nucleated RBC % (auto) 0.0 Sodium Potassium Chloride Carbon Dioxide Anion Gap BUN Creatinine Estim Creat Clear Calc Estimated GFR Random Glucose Calcium Total Bilirubin AST ALT Alkaline Phosphatase Total Protein Albumin Urine Opiates Screen Not Detected Urine Fentanyl Screen Not Detected Ur Barbiturates Screen Not Detected Ur Phencyclidine Scrn Not Detected Ur Amphetamines Screen Not Detected U Benzodiazepines Scrn Not Detected Urine Cocaine Screen Not Detected U Marijuana (THC) Screen POSITIVE H Ethyl Alcohol Influenza Type A (PCR) NEGATIVE Influenza Type B (PCR) NEGATIVE RSV RNA Qual (PCR) NEGATIVE SARS-CoV-2 RNA (RT-PCR) NEGATIVE 03/06/22 10:44 WBC RBC Hgb Hct MCV MCH MCHC RDW Plt Count MPV Immature Gran % (Auto) Neut % (Auto) Lymph % (Auto) [place] % (Auto) Eos % (Auto) Baso % (Auto) Lymph # (Auto) [place] # (Auto) Eos # (Auto) Baso # (Auto) Abs Immat Gran (auto) Absolute Neuts (auto) Absolute Nucleated RBC Nucleated RBC % (auto) Sodium 137 Potassium 3.9 Chloride 106 Carbon Dioxide 23 Anion Gap 12 BUN 7 L Creatinine 1.06 Estim Creat Clear Calc 133.3 Estimated GFR > 60 Random Glucose 86 Calcium 9.8 Total Bilirubin 0.8 AST 16 ALT 21 Alkaline Phosphatase 56 Total Protein 6.9 Albumin 4.6 Urine Opiates Screen Urine Fentanyl Screen Ur Barbiturates Screen Ur Phencyclidine Scrn Ur Amphetamines Screen U Benzodiazepines Scrn Urine Cocaine Screen U Marijuana (THC) Screen Ethyl Alcohol < 10 Influenza Type A (PCR) Influenza Type B (PCR) RSV RNA Qual (PCR) SARS-CoV-2 RNA (RT-PCR) Medications Medications Current Medications Acetaminophen (Acetaminophen 325 Mg Tablet) 650 mg PO Q6H PRN PRN Reason: Headache/Pain Mild Scale (1-3) Last Admin: 03/07/22 02:43 Dose: 650 mg Al Hydroxide/Mg Hydroxide (Magnesium Hydrox/Alum Hydrox 30 Ml Oral.Susp) 30 ml PO Q6H PRN PRN Reason: Heartburn/Nausea Bupropion HCl (Bupropion Hcl Xl 150 Mg Tab.Er.24h) 150 mg PO DAILY [facility] Last Admin: 03/06/22 08:58 Dose: 150 mg Diltiazem HCl (Diltiazem Hcl Cd 240 Mg Cap.Er.Deg) 240 mg PO DAILY [facility]; Protocol Last Admin: 03/07/22 12:21 Dose: 240 mg Ferrous Sulfate (Ferrous Sulfate 324 Mg Tablet.Dr) 324 mg PO DAILY [facility] Last Admin: 03/07/22 08:46 Dose: 324 mg Folic Acid (Folic Acid 1 Mg Tablet) 1 mg PO DAILY [facility] Last Admin: 03/07/22 08:46 Dose: 1 mg Hydroxyzine HCl (Hydroxyzine Hcl 25 Mg Tablet) 25 mg PO Q6H PRN PRN Reason: Anxiety Last Admin: 03/06/22 23:44 Dose: 25 mg Magnesium Hydroxide (Milk Of Magnesia 30 Ml Oral.Susp) 30 ml PO DAILY PRN PRN Reason: Constipation Multivitamins/Vitamin C (Multivitamin Tablet) 1 tab PO DAILY [facility] Last Admin: 03/07/22 08:46 Dose: 1 tab Nicotine Polacrilex (Nicotine Polacrilex 2 Mg Gum) 4 mg BUCCAL Q2H PRN PRN Reason: Nicotine Cravings Thiamine HCl (Thiamine Hcl 100 Mg Tablet) 100 mg PO DAILY [facility] Last Admin: 03/07/22 08:46 Dose: 100 mg Trazodone HCl (Trazodone Hcl 50 Mg Tablet) 50 mg PO BEDTIME PRN PRN Reason: Insomnia Last Admin: 03/06/22 23:43 Dose: 50 mg Vitamin D (Cholecalciferol (Vitamin D3) 25 Mcg Tablet) 125 mcg PO DAILY [facility] Last Admin: 03/07/22 08:46 Dose: 125 mcg Allergies Allergies Allergy/AdvReac Type Severity Reaction Status Date / Time No Known Allergies Allergy Mild N/A Unverified 12/22/19 17:26 Assessment & Plan Assessment & Plan (1) Schizoaffective disorder, depressive type: Status: Acute Code(s): F25.1 - Schizoaffective disorder, depressive type Plan 36 y.o. male who carries a dx of schizoaffective disorder, PTSD, AUD (in remission). He presented to [facility] on 03/04/22 due to paranoid ideation, increased anxiety, he endorsed passive SI.?Pt believes people are after him, following him, and want to kill him; thinks they are outside the hospital waiting for him. Believes local crimes are connected to him. Pt?s mother says he has had worsening paranoia since leaving the , [facility] No current OP treatment. Plan: 03/06 D/C wellbutrin XL 150 mg as this may be exacerbating paranoia, psychosis 03/07 Start lexapro 10 mg daily for sx of PTSD, anxiety. re-start prazosin 4 mg HS for PTSD nightmares, hyperarousal Q15 min safety checks, CV Monitor response to medications. Monitor for safety in the milieu. Discharge on stabilization. Patient seen. Chart reviewed. Discussed with team. Obtain collateral contact info?as needed I spent minutes with the patient and/or on the patient floor today, greater than?50% of which was spent counseling/coordinating care. Patient educated on: diagnosis, medication risk/benefits and therapeutic strategies Reason for contiued inpatient stay Substantial Risk for: rapid decompensation and med/psych decompensation
[2022-03-07] MEDS: hydrOXYzine HCL 25 MG TABLET PO (18:20)
[2022-03-07 22:00] VITALS: BP 138/87; PULSE 96; RESP 16; TEMP 36.8; O2SAT 98
[2022-03-07] MEDS: Prazosin HCL 1 MG CAPSULE 4 MG PO (22:03)
[2022-03-07] MEDS: hydrOXYzine HCL 50 MG TABLET PO (22:03)
[2022-03-07] MEDS: traZODone HCL 50 MG TABLET PO (23:08)
--- NOTE | 2022-03-08 01:54 | HO.PSYCHPN ---
Subjective Subjective Date of Service: 03/08/22 Reason For Visit: SI Interim History: Spoke with pt and team. Pt has been c/o of what appears to be Raynaud's, has pain in fingers, addition of motrin prn helped. Says he woke up groggy, but that's baseline. feels anxious due to starting new medication but art group and watching soccer are helping. wants to do meditation group later. Feels safe. Continues to deny paranoia or delusional thought content. Mental Status Exam Mental Status Exam Narrative: A&O. Overweight, long mackenzie. Good eye contact, attentive. No Tics or Tremors. No abnormal involuntary movements. Calm, cooperative, engaged. Non-pressured speech, spontaneous with regular rate and rhythm, normal volume and prosody. No prolonged speech latency or dysarthria. Mood is ?anxious,? affect is appropriate. Denies SI/SIB/HI upon inquiry. Denies A/VH or delusional thought content. Thoughts are coherent, organized. No known cognitive or memory impairment. Insight/ Judgment fair and adequate. Diagnostics Vital Signs (24Hr): Vital Signs - 24 hr 03/07/22 08:49 03/07/22 22:00 Temperature 97.8 F 98.3 F Pulse Rate 68 96 Respiratory Rate 17 16 Blood Pressure 168/98 H 138/87 Pulse Oximetry 98 98 Oxygen Delivery Method Room Air Room Air BMI result Body Mass Index 36.8 Labs Results: 03/06/22 05:39 03/06/22 10:44 Labs: Laboratory Results - last 48 hr 03/06/22 03/06/22 03/06/22 02:30 05:39 10:44 WBC 7.4 RBC 5.88 H Hgb 11.6 L Hct 39.6 L MCV 67.3 L MCH 19.7 L MCHC 29.3 L RDW 19.9 H Plt Count 404 H MPV 8.8 L Immature Gran % (Auto) 0.3 Neut % (Auto) 68.1 Lymph % (Auto) 22.1 [place] % (Auto) 7.8 Eos % (Auto) 1.3 Baso % (Auto) 0.4 Lymph # (Auto) 1.6 [place] # (Auto) 0.6 Eos # (Auto) 0.1 Baso # (Auto) 0.0 Abs Immat Gran (auto) 0.02 Absolute Neuts (auto) 5.0 Absolute Nucleated RBC 0.000 Nucleated RBC % (auto) 0.0 Sodium 137 Potassium 3.9 Chloride 106 Carbon Dioxide 23 Anion Gap 12 BUN 7 L Creatinine 1.06 Estim Creat Clear Calc 133.3 Estimated GFR > 60 Random Glucose 86 Calcium 9.8 Total Bilirubin 0.8 AST 16 ALT 21 Alkaline Phosphatase 56 Total Protein 6.9 Albumin 4.6 Urine Opiates Screen Not Detected Urine Fentanyl Screen Not Detected Ur Barbiturates Screen Not Detected Ur Phencyclidine Scrn Not Detected Ur Amphetamines Screen Not Detected U Benzodiazepines Scrn Not Detected Urine Cocaine Screen Not Detected U Marijuana (THC) Screen POSITIVE H Ethyl Alcohol < 10 Medications Medications Current Medications Acetaminophen (Acetaminophen 325 Mg Tablet) 650 mg PO Q6H PRN PRN Reason: Headache/Pain Mild Scale (1-3) Last Admin: 03/07/22 02:43 Dose: 650 mg Al Hydroxide/Mg Hydroxide (Magnesium Hydrox/Alum Hydrox 30 Ml Oral.Susp) 30 ml PO Q6H PRN PRN Reason: Heartburn/Nausea Bupropion HCl (Bupropion Hcl Xl 150 Mg Tab.Er.24h) 150 mg PO DAILY [facility] Last Admin: 03/06/22 08:58 Dose: 150 mg Diltiazem HCl (Diltiazem Hcl Cd 240 Mg Cap.Er.Deg) 240 mg PO DAILY [facility]; Protocol Last Admin: 03/07/22 12:21 Dose: 240 mg Escitalopram Oxalate (Escitalopram Oxalate 10 Mg Tablet) 10 mg PO DAILY [facility] Ferrous Sulfate (Ferrous Sulfate 324 Mg Tablet.Dr) 324 mg PO DAILY [facility] Last Admin: 03/07/22 08:46 Dose: 324 mg Folic Acid (Folic Acid 1 Mg Tablet) 1 mg PO DAILY [facility] Last Admin: 03/07/22 08:46 Dose: 1 mg Hydroxyzine HCl (Hydroxyzine Hcl 50 Mg Tablet) 50 mg PO Q4H PRN PRN Reason: Anxiety Last Admin: 03/07/22 22:03 Dose: 50 mg Magnesium Hydroxide (Milk Of Magnesia 30 Ml Oral.Susp) 30 ml PO DAILY PRN PRN Reason: Constipation Multivitamins/Vitamin C (Multivitamin Tablet) 1 tab PO DAILY [facility] Last Admin: 03/07/22 08:46 Dose: 1 tab Nicotine Polacrilex (Nicotine Polacrilex 2 Mg Gum) 4 mg BUCCAL Q2H PRN PRN Reason: Nicotine Cravings Prazosin HCl (Prazosin Hcl 1 Mg Capsule) 4 mg PO BEDTIME [facility]; Protocol Last Admin: 03/07/22 22:03 Dose: 4 mg Thiamine HCl (Thiamine Hcl 100 Mg Tablet) 100 mg PO DAILY [facility] Last Admin: 03/07/22 08:46 Dose: 100 mg Trazodone HCl (Trazodone Hcl 50 Mg Tablet) 50 mg PO BEDTIME PRN PRN Reason: Insomnia Last Admin: 03/07/22 23:08 Dose: 50 mg Vitamin D (Cholecalciferol (Vitamin D3) 25 Mcg Tablet) 125 mcg PO DAILY [facility] Last Admin: 03/07/22 08:46 Dose: 125 mcg Allergies Allergies Allergy/AdvReac Type Severity Reaction Status Date / Time No Known Allergies Allergy Mild N/A Unverified 12/22/19 17:26 Assessment & Plan Assessment & Plan (1) Schizoaffective disorder, depressive type: Status: Acute Code(s): F25.1 - Schizoaffective disorder, depressive type Plan 36 y.o. male who carries a dx of schizoaffective disorder, PTSD, AUD (in remission). He presented to [facility] on 03/04/22 due to paranoid ideation, increased anxiety, he endorsed passive SI.?Pt believes people are after him, following him, and want to kill him; thinks they are outside the hospital waiting for him. Believes local crimes are connected to him. Pt?s mother says he has had worsening paranoia since leaving the , [facility]. No current OP treatment. Plan: 03/06 D/C wellbutrin XL 150 mg as this may be exacerbating paranoia, psychosis 03/07 Start lexapro 10 mg daily for sx of PTSD, anxiety. re-start prazosin 4 mg HS for PTSD nightmares, hyperarousal 03/08 continue med trial, no changes Q15 min safety checks, CV Monitor response to medications. Monitor for safety in the milieu. Discharge on stabilization. Patient seen. Chart reviewed. Discussed with team. Obtain collateral contact info?as needed I spent minutes with the patient and/or on the patient floor today, greater than?50% of which was spent counseling/coordinating care. Patient educated on: medication risk/benefits and therapeutic strategies Reason for contiued inpatient stay Substantial Risk for: med/psych decompensation
[2022-03-08] MEDS: Acetaminophen 325 MG TABLET 650 MG PO ×2 (02:05→21:07)
[2022-03-08] MEDS: Ibuprofen 600 MG TABLET PO ×2 (02:14→22:55)
[2022-03-08 04:28] VITALS: RESP 16
[2022-03-08 06:00] VITALS: BP 139/90; PULSE 92; RESP 16; TEMP 36.6; O2SAT 98
[2022-03-08] MEDS: dilTIAZem HCL CD 240 MG CAP.ER.DEG PO (09:18)
[2022-03-08] MEDS: Thiamine HCL 100 MG TABLET PO (09:18)
[2022-03-08] MEDS: Cholecalciferol (Vitamin D3) 25 MCG TABLET 125 MCG PO (09:18)
[2022-03-08] MEDS: Ferrous Sulfate 324 MG TABLET.DR PO (09:19)
[2022-03-08] MEDS: Folic Acid 1 MG TABLET PO (09:19)
[2022-03-08] MEDS: Multivitamin TABLET 1 TAB PO (09:19)
[2022-03-08] MEDS: Escitalopram Oxalate 10 MG TABLET PO (09:19)
[2022-03-08 18:46] VITALS: BP 158/97; PULSE 100; RESP 16; TEMP 36.8; O2SAT 97
--- NOTE | 2022-03-08 19:12 | PC.NURSE ---
touched base with providers in regard to the patients thumb and pointer finger on his left hand. Patient has documented discoloration and pain in the area. Due to skin color looking bruised, and patient stated that he has some pain in the area, picture was sent to provider through [employer]. It was indicated that problem will be treated outpatient.
[2022-03-08] MEDS: hydrOXYzine HCL 50 MG TABLET PO (19:54)
[2022-03-08] MEDS: Prazosin HCL 1 MG CAPSULE 4 MG PO (21:07)
[2022-03-08] MEDS: traZODone HCL 50 MG TABLET PO (22:56)
[2022-03-09 06:00] VITALS: BP 146/94; PULSE 97; RESP 18; TEMP 36.7; O2SAT 96
[2022-03-09] MEDS: dilTIAZem HCL CD 240 MG CAP.ER.DEG PO (08:19)
[2022-03-09] MEDS: Cholecalciferol (Vitamin D3) 25 MCG TABLET 125 MCG PO (08:19)
[2022-03-09] MEDS: Multivitamin TABLET 1 TAB PO (08:19)
[2022-03-09] MEDS: Ferrous Sulfate 324 MG TABLET.DR PO (08:20)
[2022-03-09] MEDS: Acetaminophen 325 MG TABLET 650 MG PO ×2 (08:20→23:11)
[2022-03-09] MEDS: Escitalopram Oxalate 10 MG TABLET PO (08:20)
[2022-03-09] MEDS: Thiamine HCL 100 MG TABLET PO (08:21)
[2022-03-09] MEDS: Folic Acid 1 MG TABLET PO (08:21)
[2022-03-09] MEDS: hydrOXYzine HCL 50 MG TABLET PO ×3 (11:03→23:12)
--- NOTE | 2022-03-09 13:33 | P.PNPSI_ITS ---
Subjective Subjective Date of Service: 03/09/22 Reason For Visit: SI Interim History: Spoke with team and pt. Still says he is waking up groggy, but again says this is his baseline. Sleep is improved. Feels prazosin is helping with sleep and mood. Some concern of feeling a lot less chatty on medication. Still anxious in the morning, asks for prazosin to be in the morning as well as he took this BID in the past, feels it would be very beneficial. Denies delisional thought content, says paranoia is definitely going way down. Mental Status Exam Mental Status Exam Narrative: A&O. Overweight, long mackenzie. Good eye contact, attentive. No Tics or Tremors. No abnormal involuntary movements. Calm, cooperative, engaged. Non-pressured speech, spontaneous with regular rate and rhythm, normal volume and prosody. No prolonged speech latency or dysarthria. Mood is ?anxious,? affect is a ppropriate. Denies SI/SIB/HI upon inquiry. Denies A/VH or delusional thought content. Thoughts are coherent, organized. No known cognitive or memory impairment. Insight/ Judgment fair and adequate. Diagnostics Vital Signs (24Hr): Vital Signs - 24 hr 03/08/22 18:46 03/09/22 06:00 Temperature 98.2 F 98.1 F Pulse Rate 100 97 Respiratory Rate 16 18 Blood Pressure 158/97 H 146/94 H Pulse Oximetry 97 96 Oxygen Delivery Method Room Air Room Air BMI result Body Mass Index 36.8 Labs Results: 03/06/22 05:39 03/06/22 10:44 Medications Medications Current Medications Acetaminophen (Acetaminophen 325 Mg Tablet) 650 mg PO Q6H PRN PRN Reason: Headache/Pain Mild Scale (1-3) Last Admin: 03/09/22 08:20 Dose: 650 mg Al Hydroxide/Mg Hydroxide (Magnesium Hydrox/Alum Hydrox 30 Ml Oral.Susp) 30 ml PO Q6H PRN PRN Reason: Heartburn/Nausea Bupropion HCl (Bupropion Hcl Xl 150 Mg Tab.Er.24h) 150 mg PO DAILY [facility] Last Admin: 03/06/22 08:58 Dose: 150 mg Diltiazem HCl (Diltiazem Hcl Cd 240 Mg Cap.Er.Deg) 240 mg PO DAILY [facility]; Protocol Last Admin: 03/09/22 08:19 Dose: 240 mg Escitalopram Oxalate (Escitalopram Oxalate 10 Mg Tablet) 10 mg PO DAILY [facility] Last Admin: 03/09/22 08:20 Dose: 10 mg Ferrous Sulfate (Ferrous Sulfate 324 Mg Tablet.Dr) 324 mg PO DAILY [facility] Last Admin: 03/09/22 08:20 Dose: 324 mg Folic Acid (Folic Acid 1 Mg Tablet) 1 mg PO DAILY [facility] Last Admin: 03/09/22 08:21 Dose: 1 mg Hydroxyzine HCl (Hydroxyzine Hcl 50 Mg Tablet) 50 mg PO Q4H PRN PRN Reason: Anxiety Last Admin: 03/09/22 11:03 Dose: 50 mg Ibuprofen (Ibuprofen 600 Mg Tablet) 600 mg PO Q6H PRN PRN Reason: Pain, Severe (Pain Scale 7-10) Last Admin: 03/08/22 22:55 Dose: 600 mg Magnesium Hydroxide (Milk Of Magnesia 30 Ml Oral.Susp) 30 ml PO DAILY PRN PRN Reason: Constipation Multivitamins/Vitamin C (Multivitamin Tablet) 1 tab PO DAILY [facility] Last Admin: 03/09/22 08:19 Dose: 1 tab Nicotine Polacrilex (Nicotine Polacrilex 2 Mg Gum) 4 mg BUCCAL Q2H PRN PRN Reason: Nicotine Cravings Prazosin HCl (Prazosin Hcl 1 Mg Capsule) 4 mg PO BEDTIME [facility]; Protocol Last Admin: 03/08/22 21:07 Dose: 4 mg Thiamine HCl (Thiamine Hcl 100 Mg Tablet) 100 mg PO DAILY [facility] Last Admin: 03/09/22 08:21 Dose: 100 mg Trazodone HCl (Trazodone Hcl 50 Mg Tablet) 50 mg PO BEDTIME PRN PRN Reason: Insomnia Last Admin: 03/08/22 22:56 Dose: 50 mg Vitamin D (Cholecalciferol (Vitamin D3) 25 Mcg Tablet) 125 mcg PO DAILY [facility] Last Admin: 03/09/22 08:19 Dose: 125 mcg Allergies Allergies Allergy/AdvReac Type Severity Reaction Status Date / Time No Known Allergies Allergy Mild N/A Unverified 12/22/19 17:26 Assessment & Plan Assessment & Plan (1) Schizoaffective disorder, depressive type: Status: Acute Code(s): F25.1 - Schizoaffective disorder, depressive type Plan 36 y.o. male who carries a dx of schizoaffective disorder, PTSD, AUD (in remission). He presented to [facility] on 03/04/22 due to paranoid ideation, increased anxiety, he endorsed passive SI.?Pt believes people are after him, following him, and want to kill him; thinks they are outside the hospital waiting for him. Believes local crimes are connected to him. Pt?s mother says he has had worsening paranoia since leaving [facility] , [facility] at the [place]. No current OP treatment. Plan: 03/06 D/C wellbutrin XL 150 mg as this may be exacerbating paranoia, psychosis 03/07 Start lexapro 10 mg daily for sx of PTSD, anxiety. re-start prazosin 4 mg HS for PTSD nightmares, hyperarousal 03/08 continue med trial, no changes 03/09 Add prazosin 2 mg AM for anxiety, hyperarousal, ptsd sx Q15 min safety checks, CV Monitor response to medications. Monitor for safety in the milieu. Discharge on stabilization. Patient seen. Chart reviewed. Discussed with team. Obtain collateral contact info?as needed I spent minutes with the patient and/or on the patient floor today, greater than?50% of which was spent counseling/coordinating care. Patient educated on: medication risk/benefits and therapeutic strategies Reason for contiued inpatient stay Substantial Risk for: med/psych decompensation
[2022-03-09 20:30] VITALS: BP 143/91; PULSE 99; RESP 18; TEMP 36.8; O2SAT 98
[2022-03-09] MEDS: Prazosin HCL 1 MG CAPSULE 4 MG PO (20:31)
[2022-03-09] MEDS: traZODone HCL 50 MG TABLET PO (23:12)
[2022-03-09] MEDS: Ibuprofen 600 MG TABLET PO (23:12)
[2022-03-10 08:30] VITALS: BP 138/94; PULSE 98; RESP 20; TEMP 36.6; O2SAT 98
[2022-03-10] MEDS: Cholecalciferol (Vitamin D3) 25 MCG TABLET 125 MCG PO (08:36)
[2022-03-10] MEDS: Acetaminophen 325 MG TABLET 650 MG PO ×2 (08:37→23:54)
[2022-03-10] MEDS: Multivitamin TABLET 1 TAB PO (08:37)
[2022-03-10] MEDS: Ferrous Sulfate 324 MG TABLET.DR PO (08:37)
[2022-03-10] MEDS: dilTIAZem HCL CD 240 MG CAP.ER.DEG PO (08:37)
[2022-03-10] MEDS: Folic Acid 1 MG TABLET PO (08:38)
[2022-03-10] MEDS: Escitalopram Oxalate 10 MG TABLET PO (08:38)
[2022-03-10] MEDS: Prazosin HCL 1 MG CAPSULE 2 MG PO ×2 (08:38→14:26)
[2022-03-10] MEDS: Thiamine HCL 100 MG TABLET PO (08:38)
[2022-03-10] MEDS: hydrOXYzine HCL 50 MG TABLET PO ×2 (13:02→22:29)
--- NOTE | 2022-03-10 14:05 | HO.PSYCHPN ---
Subjective Subjective Date of Service: 03/10/22 Reason For Visit: SI Interim History: pt calm and cooperative. interested in subacute care at [facility] on hui 4U; admissions at [facility] alerted. states prazosin helpful for anxiety and BP, agreeable to boost 24/7 coverage by adding a dose at 3 pm. no other requests or complaints. per staff, plesaant, cooperative. anx 8. milder depression. active, social. attending groups. playing Phillip. taking meds, eating meals. slept after midnight. Mental Status Exam Mental Status Exam Narrative: A&O. Overweight, long mackenzie. Good eye contact, attentive. No Tics or Tremors. No abnormal involuntary movements. Calm, cooperative, engaged. Non-pressured speech, spontaneous with regular rate and rhythm, normal volume and prosody. No prolonged speech latency or dysarthria. affect is constricted, normo-intense. No SI/HI/AVH expressed. Thoughts are coherent, organized. No known cognitive or memory impairment. Insight/ Judgment fair and adequate. Diagnostics Vital Signs (24Hr): Vital Signs - 24 hr 03/09/22 20:30 03/10/22 08:30 Temperature 98.3 F 97.9 F Pulse Rate 99 98 Respiratory Rate 18 20 Blood Pressure 143/91 H 138/94 H Pulse Oximetry 98 98 Oxygen Delivery Method Room Air Room Air BMI result Body Mass Index 36.8 Labs Results: 03/06/22 05:39 03/06/22 10:44 Medications Medications Current Medications Acetaminophen (Acetaminophen 325 Mg Tablet) 650 mg PO Q6H PRN PRN Reason: Headache/Pain Mild Scale (1-3) Last Admin: 03/10/22 08:37 Dose: 650 mg Al Hydroxide/Mg Hydroxide (Magnesium Hydrox/Alum Hydrox 30 Ml Oral.Susp) 30 ml PO Q6H PRN PRN Reason: Heartburn/Nausea Diltiazem HCl (Diltiazem Hcl Cd 240 Mg Cap.Er.Deg) 240 mg PO DAILY [facility]; Protocol Last Admin: 03/10/22 08:37 Dose: 240 mg Escitalopram Oxalate (Escitalopram Oxalate 10 Mg Tablet) 10 mg PO DAILY [facility] Last Admin: 03/10/22 08:38 Dose: 10 mg Ferrous Sulfate (Ferrous Sulfate 324 Mg Tablet.Dr) 324 mg PO DAILY [facility] Last Admin: 03/10/22 08:37 Dose: 324 mg Folic Acid (Folic Acid 1 Mg Tablet) 1 mg PO DAILY [facility] Last Admin: 03/10/22 08:38 Dose: 1 mg Hydroxyzine HCl (Hydroxyzine Hcl 50 Mg Tablet) 50 mg PO Q4H PRN PRN Reason: Anxiety Last Admin: 03/10/22 13:02 Dose: 50 mg Ibuprofen (Ibuprofen 600 Mg Tablet) 600 mg PO Q6H PRN PRN Reason: Pain, Severe (Pain Scale 7-10) Last Admin: 03/09/22 23:12 Dose: 600 mg Magnesium Hydroxide (Milk Of Magnesia 30 Ml Oral.Susp) 30 ml PO DAILY PRN PRN Reason: Constipation Multivitamins/Vitamin C (Multivitamin Tablet) 1 tab PO DAILY [facility] Last Admin: 03/10/22 08:37 Dose: 1 tab Nicotine Polacrilex (Nicotine Polacrilex 2 Mg Gum) 4 mg BUCCAL Q2H PRN PRN Reason: Nicotine Cravings Prazosin HCl (Prazosin Hcl 1 Mg Capsule) 4 mg PO BEDTIME [facility]; Protocol Last Admin: 03/09/22 20:31 Dose: 4 mg Prazosin HCl (Prazosin Hcl 1 Mg Capsule) 2 mg PO BID@0900,1500 [facility]; Protocol Thiamine HCl (Thiamine Hcl 100 Mg Tablet) 100 mg PO DAILY [facility] Last Admin: 03/10/22 08:38 Dose: 100 mg Trazodone HCl (Trazodone Hcl 50 Mg Tablet) 50 mg PO BEDTIME PRN PRN Reason: Insomnia Last Admin: 03/09/22 23:12 Dose: 50 mg Vitamin D (Cholecalciferol (Vitamin D3) 25 Mcg Tablet) 125 mcg PO DAILY [facility] Last Admin: 03/10/22 08:36 Dose: 125 mcg Allergies Allergies Allergy/AdvReac Type Severity Reaction Status Date / Time No Known Allergies Allergy Mild N/A Unverified 12/22/19 17:26 Assessment & Plan Assessment & Plan (1) Schizoaffective disorder, depressive type: Status: Acute Code(s): F25.1 - Schizoaffective disorder, depressive type Plan 36 y.o. male who carries a dx of schizoaffective disorder, PTSD, AUD (in remission). He presented to [facility] on 03/04/22 due to paranoid ideation, increased anxiety, he endorsed passive SI.?Pt believes people are after him, following him, and want to kill him; thinks they are outside the hospital waiting for him. Believes local crimes are connected to him. Pt?s mother says he has had worsening paranoia since leaving the , [facility] No current OP treatment. Plan: 03/06 D/C wellbutrin XL 150 mg as this may be exacerbating paranoia, psychosis 03/07 Start lexapro 10 mg daily for sx of PTSD, anxiety. re-start prazosin 4 mg HS for PTSD nightmares, hyperarousal 03/08 continue med trial, no changes 03/09 Add prazosin 2 mg AM for anxiety, hyperarousal, ptsd sx 03/10: add prazosin 2 mg at 3 pm for total regimen of . I spent __25____ minutes with the patient and/or on the patient floor today, greater than?50% of which was spent counseling/coordinating care. Reason for contiued inpatient stay Substantial Risk for: inability to function and rapid decompensation
[2022-03-10 14:26] VITALS: BP 159/89; PULSE 93
[2022-03-10 16:53] VITALS: BP 148/96; PULSE 97
[2022-03-10 19:35] VITALS: BP 155/88; PULSE 100; RESP 16; TEMP 36.7; O2SAT 98
[2022-03-10 22:28] VITALS: BP 136/90
[2022-03-10] MEDS: Prazosin HCL 1 MG CAPSULE 4 MG PO (22:29)
[2022-03-10] MEDS: traZODone HCL 50 MG TABLET PO (23:51)
[2022-03-10] MEDS: Ibuprofen 600 MG TABLET PO (23:54)
[2022-03-11 08:27] VITALS: BP 155/92; PULSE 98; RESP 18; TEMP 36.7; O2SAT 97
[2022-03-11] MEDS: Prazosin HCL 1 MG CAPSULE 2 MG PO (08:28)
[2022-03-11] MEDS: Cholecalciferol (Vitamin D3) 25 MCG TABLET 125 MCG PO (08:29)
[2022-03-11] MEDS: dilTIAZem HCL CD 240 MG CAP.ER.DEG PO (08:29)
[2022-03-11] MEDS: Folic Acid 1 MG TABLET PO (08:30)
[2022-03-11] MEDS: Multivitamin TABLET 1 TAB PO (08:30)
[2022-03-11] MEDS: Ferrous Sulfate 324 MG TABLET.DR PO (08:30)
[2022-03-11] MEDS: Thiamine HCL 100 MG TABLET PO (08:31)
[2022-03-11] MEDS: Escitalopram Oxalate 10 MG TABLET PO (08:31)
[2022-03-11] MEDS: hydrOXYzine HCL 50 MG TABLET PO ×3 (08:36→19:34)
[2022-03-11] MEDS: Ibuprofen 600 MG TABLET PO ×2 (12:59→22:56)
[2022-03-11 14:52] VITALS: BP 147/90; PULSE 91
[2022-03-11] MEDS: Prazosin HCL 1 MG CAPSULE 3 MG PO (14:54)
--- NOTE | 2022-03-11 16:01 | HO.PSYCHPN ---
Subjective Subjective Date of Service: 03/11/22 Reason For Visit: SI Interim History: reverses his decision to pursue hui 4 upper residential Tx at [facility]. does want outpt F/U at [facility], however. anxiety better but continues to be a problem, as does BP. agrees to increase daytime prazosin dosing in attempt to address both. sleeping well, nightmares only occasionally. per staff, fluctuating anx/dep. denies SI/HI/AVH. attending groups. elevated BPs. Mental Status Exam Mental Status Exam Narrative: A&O. Overweight, mackenzie. Good eye contact, attentive. No Tics or Tremors. No abnormal involuntary movements. Calm, cooperative, engaged. Non-pressured speech, spontaneous with regular rate and rhythm, normal volume and prosody. No prolonged speech latency or dysarthria. affect is constricted, normo-intense. No SI/HI/AVH expressed. Thoughts are coherent, organized. No known cognitive or memory impairment. Insight/ Judgment fair and adequate. Diagnostics Vital Signs (24Hr): Vital Signs - 24 hr 03/10/22 16:53 03/10/22 19:35 03/10/22 22:28 Temperature 98.1 F Pulse Rate 97 100 Respiratory Rate 16 Blood Pressure 148/96 H 155/88 H 136/90 H Pulse Oximetry 98 Oxygen Delivery Method Room Air 03/11/22 08:27 03/11/22 14:52 Temperature 98.1 F Pulse Rate 98 91 Respiratory Rate 18 Blood Pressure 155/92 H 147/90 H Pulse Oximetry 97 Oxygen Delivery Method Room Air BMI result Body Mass Index 36.8 Labs Results: 03/06/22 05:39 03/06/22 10:44 Medications Medications Current Medications Acetaminophen (Acetaminophen 325 Mg Tablet) 650 mg PO Q6H PRN PRN Reason: Headache/Pain Mild Scale (1-3) Last Admin: 03/10/22 23:54 Dose: 650 mg Al Hydroxide/Mg Hydroxide (Magnesium Hydrox/Alum Hydrox 30 Ml Oral.Susp) 30 ml PO Q6H PRN PRN Reason: Heartburn/Nausea Diltiazem HCl (Diltiazem Hcl Cd 240 Mg Cap.Er.Deg) 240 mg PO DAILY [facility]; Protocol Last Admin: 03/11/22 08:29 Dose: 240 mg Escitalopram Oxalate (Escitalopram Oxalate 10 Mg Tablet) 10 mg PO DAILY [facility] Last Admin: 03/11/22 08:31 Dose: 10 mg Ferrous Sulfate (Ferrous Sulfate 324 Mg Tablet.Dr) 324 mg PO DAILY [facility] Last Admin: 03/11/22 08:30 Dose: 324 mg Folic Acid (Folic Acid 1 Mg Tablet) 1 mg PO DAILY [facility] Last Admin: 03/11/22 08:30 Dose: 1 mg Hydroxyzine HCl (Hydroxyzine Hcl 50 Mg Tablet) 50 mg PO Q4H PRN PRN Reason: Anxiety Last Admin: 03/11/22 12:59 Dose: 50 mg Ibuprofen (Ibuprofen 600 Mg Tablet) 600 mg PO Q6H PRN PRN Reason: Pain, Severe (Pain Scale 7-10) Last Admin: 03/11/22 12:59 Dose: 600 mg Magnesium Hydroxide (Milk Of Magnesia 30 Ml Oral.Susp) 30 ml PO DAILY PRN PRN Reason: Constipation Multivitamins/Vitamin C (Multivitamin Tablet) 1 tab PO DAILY [facility] Last Admin: 03/11/22 08:30 Dose: 1 tab Nicotine Polacrilex (Nicotine Polacrilex 2 Mg Gum) 4 mg BUCCAL Q2H PRN PRN Reason: Nicotine Cravings Prazosin HCl (Prazosin Hcl 1 Mg Capsule) 4 mg PO BEDTIME [facility]; Protocol Last Admin: 03/10/22 22:29 Dose: 4 mg Prazosin HCl (Prazosin Hcl 1 Mg Capsule) 3 mg PO BID@0900,1500 [facility]; Protocol Last Admin: 03/11/22 14:54 Dose: 3 mg Thiamine HCl (Thiamine Hcl 100 Mg Tablet) 100 mg PO DAILY [facility] Last Admin: 03/11/22 08:31 Dose: 100 mg Trazodone HCl (Trazodone Hcl 50 Mg Tablet) 50 mg PO BEDTIME PRN PRN Reason: Insomnia Last Admin: 03/10/22 23:51 Dose: 50 mg Vitamin D (Cholecalciferol (Vitamin D3) 25 Mcg Tablet) 125 mcg PO DAILY [facility] Last Admin: 03/11/22 08:29 Dose: 125 mcg Allergies Allergies Allergy/AdvReac Type Severity Reaction Status Date / Time No Known Allergies Allergy Mild N/A Unverified 12/22/19 17:26 Assessment & Plan Assessment & Plan (1) Schizoaffective disorder, depressive type: Status: Acute Code(s): F25.1 - Schizoaffective disorder, depressive type Plan 36 y.o. male who carries a dx of schizoaffective disorder, PTSD, AUD (in remission). He presented to [facility] on 03/04/22 due to paranoid ideation, increased anxiety, he endorsed passive SI.?Pt believes people are after him, following him, and want to kill him; thinks they are outside the hospital waiting for him. Believes local crimes are connected to him. Pt?s mother says he has had worsening paranoia since leaving the , [facility] No current OP treatment. Plan: 03/06 D/C wellbutrin XL 150 mg as this may be exacerbating paranoia, psychosis 03/07 Start lexapro 10 mg daily for sx of PTSD, anxiety. re-start prazosin 4 mg HS for PTSD nightmares, hyperarousal 03/08 continue med trial, no changes 03/09 Add prazosin 2 mg AM for anxiety, hyperarousal, ptsd sx 03/10: add prazosin 2 mg at 3 pm for total regimen of . 03/11: increase prazosin dosing from to 3//4 for BP and anxiety. I spent ___25___ minutes with the patient and/or on the patient floor today, greater than?50% of which was spent counseling/coordinating care. Reason for contiued inpatient stay Substantial Risk for: inability to function and rapid decompensation
[2022-03-11] MEDS: Acetaminophen 325 MG TABLET 650 MG PO (19:34)
[2022-03-11 22:50] VITALS: BP 134/86; PULSE 93; RESP 16; TEMP 36.5; O2SAT 100
[2022-03-11] MEDS: Prazosin HCL 1 MG CAPSULE 4 MG PO (22:55)
[2022-03-11] MEDS: traZODone HCL 50 MG TABLET PO (22:56)
[2022-03-12] MEDS: Ferrous Sulfate 324 MG TABLET.DR PO (08:08)
[2022-03-12] MEDS: Thiamine HCL 100 MG TABLET PO (08:08)
[2022-03-12] MEDS: Folic Acid 1 MG TABLET PO (08:08)
[2022-03-12] MEDS: Cholecalciferol (Vitamin D3) 25 MCG TABLET 125 MCG PO (08:08)
[2022-03-12] MEDS: Multivitamin TABLET 1 TAB PO (08:08)
[2022-03-12] MEDS: Prazosin HCL 1 MG CAPSULE 3 MG PO ×2 (08:09→14:42)
[2022-03-12] MEDS: Escitalopram Oxalate 10 MG TABLET PO (08:09)
[2022-03-12] MEDS: dilTIAZem HCL CD 240 MG CAP.ER.DEG PO (08:09)
[2022-03-12 09:17] VITALS: BP 155/92; PULSE 79; RESP 22; TEMP 36.4; O2SAT 98
[2022-03-12] MEDS: Milk of Magnesia 30 ML ORAL.SUSP PO (12:28)
[2022-03-12] MEDS: hydrOXYzine HCL 50 MG TABLET PO ×3 (12:28→22:50)
--- NOTE | 2022-03-12 14:34 | HO.PSYCHPN ---
Subjective Subjective Date of Service: 03/12/22 Reason For Visit: SI Interim History: calm, cooperative, pleasant. c/o some fogginess in the mornings, attributed to trazodone. discussion held around alternatives, pt agrees to try remeron 15 mg at HS. planning for thursday discharge. per staff, pleasant. sleeping well. med-compliant. feels medications have been helpful. depression decreased, hopeful. attending groups. visible, social. Mental Status Exam Mental Status Exam Narrative: A&O. Overweight, mackenzie. Good eye contact, attentive. No Tics or Tremors. No abnormal involuntary movements. Calm, cooperative, engaged. Non-pressured speech, spontaneous with regular rate and rhythm, normal volume and prosody. No prolonged speech latency or dysarthria. affect is mnore flexible, normo-intense. No SI/HI/AVH expressed. Thoughts are coherent, organized. No known cognitive or memory impairment. Insight/ Judgment fair and adequate. Diagnostics Vital Signs (24Hr): Vital Signs - 24 hr 03/11/22 14:52 03/11/22 22:50 03/12/22 09:17 Temperature 97.7 F 97.6 F Pulse Rate 91 93 79 Respiratory Rate 16 22 H Blood Pressure 147/90 H 134/86 155/92 H Pulse Oximetry 100 98 Oxygen Delivery Method Room Air Room Air BMI result Body Mass Index 36.8 Labs Results: 03/06/22 05:39 03/06/22 10:44 Medications Medications Current Medications Acetaminophen (Acetaminophen 325 Mg Tablet) 650 mg PO Q6H PRN PRN Reason: Headache/Pain Mild Scale (1-3) Last Admin: 03/11/22 19:34 Dose: 650 mg Al Hydroxide/Mg Hydroxide (Magnesium Hydrox/Alum Hydrox 30 Ml Oral.Susp) 30 ml PO Q6H PRN PRN Reason: Heartburn/Nausea Diltiazem HCl (Diltiazem Hcl Cd 240 Mg Cap.Er.Deg) 240 mg PO DAILY [facility]; Protocol Last Admin: 03/12/22 08:09 Dose: 240 mg Escitalopram Oxalate (Escitalopram Oxalate 10 Mg Tablet) 10 mg PO DAILY [facility] Last Admin: 03/12/22 08:09 Dose: 10 mg Ferrous Sulfate (Ferrous Sulfate 324 Mg Tablet.) 324 mg PO DAILY [facility] Last Admin: 03/12/22 08:08 Dose: 324 mg Folic Acid (Folic Acid 1 Mg Tablet) 1 mg PO DAILY [facility] Last Admin: 03/12/22 08:08 Dose: 1 mg Hydroxyzine HCl (Hydroxyzine Hcl 50 Mg Tablet) 50 mg PO Q4H PRN PRN Reason: Anxiety Last Admin: 03/12/22 12:28 Dose: 50 mg Ibuprofen (Ibuprofen 600 Mg Tablet) 600 mg PO Q6H PRN PRN Reason: Pain, Severe (Pain Scale 7-10) Last Admin: 03/11/22 22:56 Dose: 600 mg Magnesium Hydroxide (Milk Of Magnesia 30 Ml Oral.Susp) 30 ml PO DAILY PRN PRN Reason: Constipation Last Admin: 03/12/22 12:28 Dose: 30 ml Mirtazapine (Mirtazapine 15 Mg Tablet) 15 mg PO BEDTIME [facility] Multivitamins/Vitamin C (Multivitamin Tablet) 1 tab PO DAILY [facility] Last Admin: 03/12/22 08:08 Dose: 1 tab Nicotine Polacrilex (Nicotine Polacrilex 2 Mg Gum) 4 mg BUCCAL Q2H PRN PRN Reason: Nicotine Cravings Prazosin HCl (Prazosin Hcl 1 Mg Capsule) 4 mg PO BEDTIME [facility]; Protocol Last Admin: 03/11/22 22:55 Dose: 4 mg Prazosin HCl (Prazosin Hcl 1 Mg Capsule) 3 mg PO BID@0900,1500 [facility]; Protocol Last Admin: 03/12/22 08:09 Dose: 3 mg Thiamine HCl (Thiamine Hcl 100 Mg Tablet) 100 mg PO DAILY [facility] Last Admin: 03/12/22 08:08 Dose: 100 mg Trazodone HCl (Trazodone Hcl 50 Mg Tablet) 50 mg PO BEDTIME PRN PRN Reason: Insomnia Last Admin: 03/11/22 22:56 Dose: 50 mg Vitamin D (Cholecalciferol (Vitamin D3) 25 Mcg Tablet) 125 mcg PO DAILY [facility] Last Admin: 03/12/22 08:08 Dose: 125 mcg Allergies Allergies Allergy/AdvReac Type Severity Reaction Status Date / Time No Known Allergies Allergy Mild N/A Unverified 12/22/19 17:26 Assessment & Plan Assessment & Plan (1) Schizoaffective disorder, depressive type: Status: Acute Code(s): F25.1 - Schizoaffective disorder, depressive type Plan 36 y.o. male who carries a dx of schizoaffective disorder, PTSD, AUD (in remission). He presented to [facility] on 03/04/22 due to paranoid ideation, increased anxiety, he endorsed passive SI.?Pt believes people are after him, following him, and want to kill him; thinks they are outside the hospital waiting for him. Believes local crimes are connected to him. Pt?s mother says he has had worsening paranoia since leaving the , [facility] No current OP treatment. Plan: 03/06 D/C wellbutrin XL 150 mg as this may be exacerbating paranoia, psychosis 03/07 Start lexapro 10 mg daily for sx of PTSD, anxiety. re-start prazosin 4 mg HS for PTSD nightmares, hyperarousal 03/08 continue med trial, no changes 03/09 Add prazosin 2 mg AM for anxiety, hyperarousal, ptsd sx 03/10: add prazosin 2 mg at 3 pm for total regimen of . 03/11: increase prazosin dosing from 05/08/ to 3//4 for BP and anxiety. 03/12: BP not affected much by escalating doses of prazosin. swap out trazodone in favor of remeron for insomnia. DC thursday. I spent ___25___ minutes with the patient and/or on the patient floor today, greater than?50% of which was spent counseling/coordinating care. Reason for contiued inpatient stay Substantial Risk for: inability to function and rapid decompensation
[2022-03-12] MEDS: Ibuprofen 600 MG TABLET PO (18:53)
[2022-03-12] MEDS: Prazosin HCL 1 MG CAPSULE 4 MG PO (22:49)
[2022-03-12 22:50] VITALS: BP 136/78; PULSE 91; RESP 18; TEMP 36.8; O2SAT 97
[2022-03-12] MEDS: Acetaminophen 325 MG TABLET 650 MG PO (22:50)
[2022-03-12] MEDS: Mirtazapine 15 MG TABLET PO (22:50)
[2022-03-13 07:00] VITALS: BMI 38.3
[2022-03-13 08:41] VITALS: BP 167/97; PULSE 88; TEMP 36.8; O2SAT 99
[2022-03-13] MEDS: Prazosin HCL 1 MG CAPSULE 3 MG PO ×2 (08:46→16:13)
[2022-03-13] MEDS: Cholecalciferol (Vitamin D3) 25 MCG TABLET 125 MCG PO (08:47)
[2022-03-13] MEDS: hydrOXYzine HCL 50 MG TABLET PO ×3 (08:48→21:49)
[2022-03-13] MEDS: Escitalopram Oxalate 10 MG TABLET PO (08:48)
[2022-03-13] MEDS: Thiamine HCL 100 MG TABLET PO (08:49)
[2022-03-13] MEDS: Folic Acid 1 MG TABLET PO (08:49)
[2022-03-13] MEDS: dilTIAZem HCL CD 240 MG CAP.ER.DEG PO (08:49)
[2022-03-13] MEDS: Multivitamin TABLET 1 TAB PO (08:49)
[2022-03-13] MEDS: Ferrous Sulfate 324 MG TABLET.DR PO (08:50)
[2022-03-13] MEDS: Ibuprofen 600 MG TABLET PO ×2 (14:00→22:42)
--- NOTE | 2022-03-13 15:27 | HO.PSYCHPN ---
Subjective Subjective Date of Service: 03/13/22 Reason For Visit: SI Interim History: pt c/o bad anxiety upon awakening this morning, asks that remeron be DCed and trazodone be restarted. still planning to discharge tomorrow. no other complaints or requests. per staff, pleasant. denies SI/HI/AVH. became agitated and yelled at staff bcse he felt a female peer was not being adequately protected by staff. D/C tomorrow. Mental Status Exam Mental Status Exam Narrative: A&O. Overweight, mackenzie. Good eye contact, attentive. No Tics or Tremors. No abnormal involuntary movements. Calm, cooperative, engaged. Non-pressured speech, spontaneous with regular rate and rhythm, normal volume and prosody. No prolonged speech latency or dysarthria. affect is more flexible, normo-intense. No SI/HI/AVH expressed. Thoughts are coherent, organized. No known cognitive or memory impairment. Insight/ Judgment fair and adequate. Diagnostics Vital Signs (24Hr): Vital Signs - 24 hr 03/12/22 22:50 03/13/22 08:41 Temperature 98.2 F 98.3 F Pulse Rate 91 88 Respiratory Rate 18 Blood Pressure 136/78 167/97 H Pulse Oximetry 97 99 Oxygen Delivery Method Room Air Room Air BMI result Body Mass Index 38.3 Labs Results: 03/06/22 05:39 03/06/22 10:44 Medications Medications Current Medications Acetaminophen (Acetaminophen 325 Mg Tablet) 650 mg PO Q6H PRN PRN Reason: Headache/Pain Mild Scale (1-3) Last Admin: 03/12/22 22:50 Dose: 650 mg Al Hydroxide/Mg Hydroxide (Magnesium Hydrox/Alum Hydrox 30 Ml Oral.Susp) 30 ml PO Q6H PRN PRN Reason: Heartburn/Nausea Diltiazem HCl (Diltiazem Hcl Cd 240 Mg Cap.Er.Deg) 240 mg PO DAILY [facility]; Protocol Last Admin: 03/13/22 08:49 Dose: 240 mg Escitalopram Oxalate (Escitalopram Oxalate 10 Mg Tablet) 10 mg PO DAILY [facility] Last Admin: 03/13/22 08:48 Dose: 10 mg Ferrous Sulfate (Ferrous Sulfate 324 Mg Tablet.) 324 mg PO DAILY [facility] Last Admin: 03/13/22 08:50 Dose: 324 mg Folic Acid (Folic Acid 1 Mg Tablet) 1 mg PO DAILY [facility] Last Admin: 03/13/22 08:49 Dose: 1 mg Hydroxyzine HCl (Hydroxyzine Hcl 50 Mg Tablet) 50 mg PO Q4H PRN PRN Reason: Anxiety Last Admin: 03/13/22 14:00 Dose: 50 mg Ibuprofen (Ibuprofen 600 Mg Tablet) 600 mg PO Q6H PRN PRN Reason: Pain, Severe (Pain Scale 7-10) Last Admin: 03/13/22 14:00 Dose: 600 mg Magnesium Hydroxide (Milk Of Magnesia 30 Ml Oral.Susp) 30 ml PO DAILY PRN PRN Reason: Constipation Last Admin: 03/12/22 12:28 Dose: 30 ml Multivitamins/Vitamin C (Multivitamin Tablet) 1 tab PO DAILY [facility] Last Admin: 03/13/22 08:49 Dose: 1 tab Nicotine Polacrilex (Nicotine Polacrilex 2 Mg Gum) 4 mg BUCCAL Q2H PRN PRN Reason: Nicotine Cravings Prazosin HCl (Prazosin Hcl 1 Mg Capsule) 4 mg PO BEDTIME [facility]; Protocol Last Admin: 03/12/22 22:49 Dose: 4 mg Prazosin HCl (Prazosin Hcl 1 Mg Capsule) 3 mg PO BID@0900,1500 [facility]; Protocol Last Admin: 03/13/22 08:46 Dose: 3 mg Thiamine HCl (Thiamine Hcl 100 Mg Tablet) 100 mg PO DAILY [facility] Last Admin: 03/13/22 08:49 Dose: 100 mg Trazodone HCl (Trazodone Hcl 50 Mg Tablet) 50 mg PO BEDTIME [facility] Vitamin D (Cholecalciferol (Vitamin D3) 25 Mcg Tablet) 125 mcg PO DAILY [facility] Last Admin: 03/13/22 08:47 Dose: 125 mcg Allergies Allergies Allergy/AdvReac Type Severity Reaction Status Date / Time No Known Allergies Allergy Mild N/A Unverified 12/22/19 17:26 Assessment & Plan Assessment & Plan (1) Schizoaffective disorder, depressive type: Status: Acute Code(s): F25.1 - Schizoaffective disorder, depressive type Plan 36 y.o. male who carries a dx of schizoaffective disorder, PTSD, AUD (in remission). He presented to [facility] on 03/04/22 due to paranoid ideation, increased anxiety, he endorsed passive SI.?Pt believes people are after him, following him, and want to kill him; thinks they are outside the hospital waiting for him. Believes local crimes are connected to him. Pt?s mother says he has had worsening paranoia since [facility] No current OP treatment. Plan: 03/06 D/C wellbutrin XL 150 mg as this may be exacerbating paranoia, psychosis 03/07 Start lexapro 10 mg daily for sx of PTSD, anxiety. re-start prazosin 4 mg HS for PTSD nightmares, hyperarousal 03/08 continue med trial, no changes 03/09 Add prazosin 2 mg AM for anxiety, hyperarousal, ptsd sx 03/10: add prazosin 2 mg at 3 pm for total regimen of . 03/11: increase prazosin dosing from to for BP and anxiety. 03/12: BP not affected much by escalating doses of prazosin. swap out trazodone in favor of remeron for insomnia. DC thursday. 03/13: stable. anxious this morning, asks to DC remeron and go back to trazodone, which is accommodated. DC tomorrow. I spent ___25___ minutes with the patient and/or on the patient floor today, greater than?50% of which was spent counseling/coordinating care. Reason for contiued inpatient stay Substantial Risk for: stable for discharge
[2022-03-13 21:41] VITALS: BP 139/86; PULSE 84; RESP 18; TEMP 36.8; O2SAT 98
[2022-03-13] MEDS: Prazosin HCL 1 MG CAPSULE 4 MG PO (21:49)
[2022-03-13] MEDS: traZODone HCL 50 MG TABLET PO (22:42)
[2022-03-13] MEDS: Acetaminophen 325 MG TABLET 650 MG PO (22:42)
[2022-03-14 06:00] VITALS: BP 139/84; PULSE 90; TEMP 36.8; O2SAT 99
--- NOTE | 2022-03-14 07:58 | PC.NURSE ---
Pt was given 4mg of Prazosin. Pulled 1mg from [facility] initially and then realized my error and went back into [facility] to pull other 3 mgs but forgot to or did not hit cancel properly and it appears as though two doses were pulled. To clarify, pt received a total of 4mg of Prazosin for 2100 dose on 03/13/2022.
[2022-03-14] MEDS: Cholecalciferol (Vitamin D3) 25 MCG TABLET 125 MCG PO (08:12)
[2022-03-14] MEDS: Prazosin HCL 1 MG CAPSULE 3 MG PO (08:13)
[2022-03-14] MEDS: Multivitamin TABLET 1 TAB PO (08:14)
[2022-03-14] MEDS: Thiamine HCL 100 MG TABLET PO (08:14)
[2022-03-14] MEDS: Folic Acid 1 MG TABLET PO (08:14)
[2022-03-14] MEDS: dilTIAZem HCL CD 240 MG CAP.ER.DEG PO (08:14)
[2022-03-14] MEDS: Escitalopram Oxalate 10 MG TABLET PO (08:14)
[2022-03-14] MEDS: Ferrous Sulfate 324 MG TABLET.DR PO (08:15)
[2022-03-14] MEDS: hydrOXYzine HCL 25 MG TABLET 50 MG PO (08:21)
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
== END 2022-03-14 11:30 | disposition home or self-care (01) | DRG 885 ==
LOC: HO.ED 03-06 14:40 → HO.PADLT16 03-06 15:09
PROVIDERS: Nurse Practitioner Family; Admitting Provider Psychiatry & Neurology Psychiatry; Emergency Provider Internal Medicine; PCP Physician Assistant; Visit Provider Psychiatry & Neurology Psychiatry
DX: F25.1 Schizoaffective disorder, depressive type (principal); R45.851 Suicidal ideations; G47.33 Obstructive sleep apnea (adult) (pediatric); I10 Essential (primary) hypertension; I73.00 Raynaud's syndrome without gangrene; Z20.822 Contact with and (suspected) exposure to COVID-19; Z23 Encounter for immunization; Z87.891 Personal history of nicotine dependence; Z79.899 Other long term (current) drug therapy
CPT/HCPCS: 0241U; 36415; 80053; 80307; 82077; 85025; 90686; 94660; 99285

== ENCOUNTER 2023-02-06 09:46 | Outpatient (AMB) | payer OTHER, SELFPAY ==
--- NOTE | 2023-02-06 10:00 | MHC.OFFVIS ---
Intake Vital Signs 02/06/23 10:03 Height 5 ft 11 in Weight 294 lb BMI 41.0 BP 133/85 Blood Pressure Location Lt brachial Position Sitting Pulse 73 Intake Visit Reasons: Anemia Intake Note: Patient new consult for Anemia. Patient denies any other GI issues. 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 male with past medical history schizoaffective disorder, and anxiety, SOLA, hypertension, obesity is here today for initial consultation. Patient has been anemic for the last couple years. Currently patient is on oral iron. He does report occasional rectal bleed. Patient denies being constipated. Family history of colorectal cancer. Maternal grandmother was diagnosed with colon cancer.? Patient was sent to us by his PCP.? ? Patient denies any gastrointestinal symptoms in the past or at present.? ? Denies history of difficulty with sedation or anesthesia in the past.? History of sleep apnea, on CPAP..? Denies any history of cardiac, renal, pulmonary, or hepatic disease.?? No history of infectious? diseases like hepatitis A, B, C, HIV or tuberculosis.? Patient is not on any anticoagulation therapy. [facility] Medical History (Updated 03/22/22 @ 00:03 by Lucia Villanueva) SOLA (obstructive sleep apnea) Alcohol abuse Hypertension Social History Household Members: Family Housing: House Alcohol intake: current Patient Tobacco Use Status: Former Tobacco user Quit Date: 2010 Tobacco use type: Cigarette Substance Use Type: Marijuana service: Yes (pt was in the [employer] for four years.) Sexual orientation: Straight/Heterosexual Review of Systems Const Denies weight gain and Denies weight loss ENT Reports no additional complaints, Denies dysphagia and Denies odynophagia Card Reports no additional complaints Resp Reports no additional complaints GI Denies abdominal pain, Denies belching, Denies melena, Denies bloating, Reports hematochezia, Denies change in bowel habits, Denies dysphagia, Denies excessive flatus, Denies dyspepsia, Denies heartburn, Denies diarrhea, Denies loose stools, Denies nausea, Denies odynophagia and Denies vomiting Reports no additional complaints Musc Reports no additional complaints Neuro Reports no additional complaints Psych Reports no additional complaints Endo Reports no additional complaints Physical Exam Vital Signs: Last Vital Signs Pulse 73 02/06/23 10:03 BP 133/85 02/06/23 10:03 BMI result Body Mass Index 41.0 Const General: healthy appearing, no acute distress and well developed Nutritional Appearance: obese Orientation/consciousness: patient oriented x3 HEENT Head: Yes normal to inspection, Yes normocephalic and Yes atraumatic Face and sinus: Yes normal facial exam Mouth: Normal oral and palatal mucosa present Throat: Yes posterior oropharynx normal, Yes tonsils normal and Yes uvula midline Eyes General: appearance normal, both eyes and all related structures Neck Neck: Yes normal visual inspection, Yes full ROM and Yes trachea midline Thyroid: Thyroid normal Resp Effort & Inspection: normal respiratory effort, able to speak in complete sentences, no tracheal deviation and symmetric chest movement Auscultation: clear to auscultation bilaterally Cardio Rate: regular rate Heart sounds: S1 normal heart sound present and S2 normal heart sound present GI Inspection: Yes normal to inspection, No distended and Yes obesity Palpation (GI): Soft to palpation, not firm, nontender and No hepatosplenomegaly present Auscultation: normal bowel sounds General: Yes no CVA tenderness Back/Spine/Pelvis Back: no CVA tenderness Skin General skin exam: elasticity normal, turgor normal and dry skin Neuro General: patient oriented x3 Psych Appearance: grossly normal Mental Status: mental status grossly normal Affect: normal affect Assessment & Plan Assessment & Plan (1) Anemia: Code(s): D64.9 - Anemia, unspecified Qualifiers: Anemia type: unspecified type Qualified Code(s): D64.9 - Anemia, unspecified (2) Rectal bleed: Code(s): K62.5 - Hemorrhage of anus and rectum Plan Patient denies any cardiac or respiratory symptoms.? Denies any issues with anesthesia in the past.? Patient reports to have sleep apnea, wears CPAP. ? No history infectious diseases in the past or present.? Not on any anticoagulation therapy.? Family history of colorectal cancer. Patient's mother and a grandmother had fallen cancer.? Patient reports occasional blood in the stool. Patient has been anemic, on oral iron. Discussed at length the pre-procedure,? prep, diet & medications as well as what to expect prior, during and after the procedure.?? Stressed the importance of good bowel prep. ?Recommended the use of Vaseline or Calmoseptine OTC & baby wipes with bowel movements to promote comfort.? ?Patient verbalizes understanding and agrees to plan of care.? He was given the opportunity to ask questions and all questions answered.? We will see him after the procedure.? Medications: New bisacodyl (Dulcolax (bisacodyl)) take 4 tabs at noon the day before your colonoscopy 20 mg (4 x 5 mg) PO ONCE 1 day 4 tabs 0RF Z12.11 - Encounter for screening for malignant neoplasm of colon polyethylene glycol 3350 (Miralax) As directed by gastroenterology department at [facility] 238 grams PO ONCE 238 grams 0RF Z12.11 - Encounter for screening for malignant neoplasm of colon Coding Level of Care Code New Pt Level 3 (95150) Diagnoses Anemia, unspecified type D64.9 Anemia type: unspecified type Rectal bleed K62.5 Time Spent (min) 40 Comment 30 minutes spent with patient and additional 10 minutes spent reviewing his records
[2023-02-06 10:03] VITALS: BP 133/85; PULSE 73; BMI 41.0
== END 2023-02-06 12:20 | disposition home or self-care (01) ==
PROVIDERS: PCP Physician Assistant; Visit Provider Nurse Practitioner Family
DX: D64.9 Anemia, unspecified (principal); K62.5 Hemorrhage of anus and rectum
CPT/HCPCS: 99203

== ENCOUNTER → 2023-02-06 09:46 | Outpatient (BNVA) | payer OTHER, SELFPAY | PROVIDERS: PCP Physician Assistant; Visit Provider Nurse Practitioner Family | DX: K62.5 Hemorrhage of anus and rectum (principal); D64.9 Anemia, unspecified | CPT/HCPCS: 99202 ==